=== PATIENT | male | born 1955 | race Caucasian/White ===

== ENCOUNTER → 2019-01-17 | Outpatient (REF) | payer OTHER | LOC: M LAB LCGH 13:56 | PROVIDERS: ATTEND Physician Assistant | DX: D48.5 Neoplasm of uncertain behavior of skin (principal) ==

== ENCOUNTER → 2019-08-06 | Outpatient (CLI) | payer OTHER ==
--- NOTE | 2019-08-07 15:48 | REP ---
PET/CT: History: Diagnosing abnormal findings digestive tract. Personal history of malignant neoplasm of the large intestine. Elevated CEA level. Comparison CT study of the chest, abdomen and pelvis has been retrieved from July 26, 2019 done at [facility]. TECHNIQUE: 54 minutes following the intravenous injection of a 8.87 mCi dose of F-18 FDG, three-dimensional PET scintigraphy is acquired from the skull base to the proximal thighs. Triplanar noncontrast CT scanning is acquired through the same anatomic range for attenuation correction, and image registration with scan parameters optimized to minimize radiation exposure to the patient. PET scintigraphy and CT datasets were fused and displayed on a workstation with multiplanar and projection display capability. PET/CT Findings: There is some bilateral thyroid gland uptake, right a little more avidly than left but no observable mass lesion. This may be normal variant. Head and neck soft tissues are otherwise unremarkable. There is no abnormal hypermetabolic uptake within the thorax. No pulmonary parenchymal nodule or abnormal parenchymal FDG accumulation is seen. No abnormal hypermetabolic uptake is seen within the liver. No abnormal uptake is seen in either adrenal gland. There is no evidence of retroperitoneal or upper abdominal annel hypermetabolic uptake. The patient is status post partial colectomy. There is minimal uptake at the anastomosis in the rectum with maximum SUV value 4.81 but this is similar in avidity to normal gastrointestinal mucosal uptake throughout the remainder the colon. No mass lesion is seen. Impression: No abnormal hypermetabolic uptake. No evidence to suggest metastatic disease by PET scintigraphy. Electronically Signed by Johan Aviles MD 08/07/2019 04:37 P
== END ==
LOC: M PLARAD 07:32
PROVIDERS: ATTEND Surgery
DX: R93.3 Abnormal findings on diagnostic imaging of other parts of digestive tract (principal); Z85.038 Personal history of other malignant neoplasm of large intestine; R97.0 Elevated carcinoembryonic antigen [CEA]
CPT/HCPCS: 78815; A9552

== ENCOUNTER → 2020-02-12 | Outpatient (CLI) | payer OTHER ==
[~2020-02-12] MED LIST: FINA5TAB2 PO; LISI10TA4 PO; OMEGCAP4 PO; REST0.05 OP; SILD100T PO
--- NOTE | 2020-02-28 13:14 | REP ---
PET CT HISTORY: Restaging malignant neoplasm of the large intestine. Abnormal findings on diagnostic imaging of the digestive system. COMPARISON: PET CT study from 08/06/2019. TECHNIQUE: 47 minutes following the intravenous injection of an 8.74 mCi dose of F18 fluorodeoxyglucose (FDG), 3D PET CT imaging is acquired from the skull base to the proximal thighs. PET CT FINDINGS: Head and neck soft tissues are remarkable for some increased metabolic activity in the thyroid lobes bilaterally, right more so than left. This is a little more evident than on the prior PET CT study, but not a new finding. Maximum SUV value 12.69 today versus 7.97 previously. No enlargement or mass lesion is visible. There is no abnormal hypermetabolic uptake in the thorax. No new lung nodule is appreciated. There is a new liver lesion, which is hypermetabolic and 3.2 cm in greatest diameter. Maximum SUV value in this new lesion is 6.37. This is consistent with a metastasis. A low-density lesion is seen on the accompanying CT. No other focal liver lesion is appreciated. There is no evidence of mass or adenopathy in the abdomen or pelvis. There is some artifactual activity extending back from the posterior wall of the bladder in the region of the anastomosis, but no mass lesion is seen. There is no evidence of pelvic disease. IMPRESSION: There is a new presumed metastatic focus in the left lobe of the liver 3.2 cm in diameter with maximum standard uptake value (SUV) 6.37. Incidental uptake is again seen in the thyroid similar to prior study. MTDD
== END ==
LOC: M PLARAD 14:26
PROVIDERS: ATTEND Surgery
DX: R93.3 Abnormal findings on diagnostic imaging of other parts of digestive tract (principal)
CPT/HCPCS: 78815; A9552

== ENCOUNTER → 2020-04-28 | Outpatient (CLI) | payer OTHER ==
[~2020-04-28] MED LIST changes: +ASPI81CH2 PO; +LIDOCAINE 1% MDV 20ML VIAL As Ordered ONE; +LISI-538 PO; +LOPE2CAP PO; +MIDAZOLAM INJ 2MG/2ML VIAL (J2250 PER 1MG) As Ordered ONE; +ONDA8TAB10 PO; +PROC10TA4 PO; +ceFAZolin 1GM VIAL (J0690 PER 500MG) As Ordered ONE; +diphenhydrAMINE 50MG/ML VIAL (J1200) As Ordered ONE; +fentaNYL 100 MCG/2 ML INJECTION (J3010) As Ordered ONE
--- NOTE | 2020-04-28 13:39 | IRHP ---
[facility] IR Pre-Procedure H & P General Date of Service: Apr 28, 2020 Procedure: Same Day Surgery Interval History and Physical I have seen the patient and reviewed last H & P performed within 30 days. There is no significant interval change. History of Present Illness Chief Complaint The patient is a 64-year-old male admitted with a reason for visit of Colon Ca. PRE-PROCEDURE DIAGNOSIS:colon cancer HEART: normal rate. LUNGS: normal breathing at rest. ASA Classification ASA Classification: III-Severe systemic dis. Mallampati Score: II NPO: Yes Problems with prior sedation: No Obstructive Sleep Apnea: No Plan moderate sedation Allergies Coded Allergies: No Known Allergies (Unverified , 04/01/20) Home Medications Scheduled Aspirin (Aspirin), 1 TAB PO DAILY, (Reported) Cyclosporine (Restasis), 1 DROP OP BID, (Reported) Finasteride (Finasteride), 5 MG PO DAILY, (Reported) Lisinopril (Lisinopril), 1 TAB PO DAILY, (Reported) Miscellaneous Medications Drain-3/Dha/Epa/Fish Oil (Drain-3 Fish Oil 1,000 mg Sfgl), 1 CAP PO, (Reported) Discontinued Medications Loperamide HCl (Loperamide), 2 MG PO ASDIRECTED PRN for DIARRHEA Discontinued Reason: Pt states not taking Ondansetron HCl (Ondansetron HCl), 8 MG PO Q6H PRN for NAUSEA OR VOMITING Discontinued Reason: Pt states not taking Prochlorperazine Maleate (Prochlorperazine Maleate), 10 MG PO Q6H PRN for NAUSEA OR VOMITING Discontinued Reason: Pt states not taking Sildenafil Citrate (Sildenafil Citrate), 100 MG PO PRN, (Reported) Discontinued Reason: Pt states not taking JOSEPH SOUSA MD Apr 28, 2020 13:39
--- NOTE | 2020-04-28 14:59 | POST-OPPD ---
Postoperative Procedure Note Date Of Procedure: Apr 28, 2020 Time Of Procedure: 14:57 IR ultrasound and fluoroscopy guided port placement IR Ultrasound of the neck. IR Moderate sedation. Clinical indication: Colon cancer. Physician: Dr. Preston. Procedure: The patient was advised of the benefits, risks, and alternatives of the procedure and informed consent was obtained. A time-out was performed with verification of the patient's name, MRN, site of procedure and type of procedure to be performed. The patient was positioned in the supine position on the angiographic table. The site was prepped and draped in the usual sterile fashion. Moderate sedation was performed by the physician including the presence of an independent trained RN who assisted and monitored the patient's level of consciousness and physiologic status. Following the administration of fentanyl and Versed , the physician spent 45 minutes of continuous face to face time with the patient. Ultrasound of the neck reveals a patent and compressible right internal jugular vein. A maxillofacial surgeon radiograph reveals no gross abnormality. The neck and anterior chest wall were anesthetized with lidocaine. The right internal jugular vein was accessed using a microintroducer needle under ultrasound guidance, via a lateral approach. An 018 wire was advanced into the superior vena cava, the needle was removed and a microsheath was placed. An Amplatz wire was then passed into the inferior vena cava. An incision at the internal jugular vein access site and anterior chest wall were made using a scalpel. An incision was made at the anterior chest wall. A small pocket was created using a combination of blunt and sharp dissection. A tunneling device was then used to pass the catheter from the pocket to the neck puncture site. An 8- [place] Angio VB Rags Smart power port was then positioned in the pocket. The catheter was then measured and cut. The introducer sheath was exchanged for a peel-away sheath. The catheter was passed through the peel-away sheath into the internal jugular vein and the peel-away sheath was removed. The port tip was positioned at the cavoatrial junction. The port was then accessed with a Leone needle. The port flushes and aspirates well. The puncture site in the neck was closed. The chest wall incision was then closed with 2-0 Vicryl and 4-0 Monocryl. Glue and Steri- Strips were applied. A sterile dressing was then applied. The patient tolerated the procedure well and was returned to the PRU in stable condition. Estimated blood loss: <5 ml. Complications: None. Conclusion: 1. Successful placement of an 8-[place] Angio dynamics Smart power port via the right internal jugular vein. The port is ready for immediate use. 2. Patient to follow up in IR clinic in 2 weeks. Thank you for this referral. JOSEPH PRESTON MD Apr 28, 2020 14:59
[2020-04-28 16:36] VITALS: BP 143/69
== END ==
LOC: M IRPRO 12:38
PROVIDERS: ATTEND Radiology Diagnostic Radiology
DX: C18.9 Malignant neoplasm of colon, unspecified (principal); Z79.82 Long term (current) use of aspirin; Z79.899 Other long term (current) drug therapy
CPT/HCPCS: 36561; 99152; 99153; C1769; C1788; C1894; J0690; J1200; J1642; J1644; J2250; J3010

== ENCOUNTER → 2020-11-24 | Outpatient (CLI) | payer OTHER ==
[~2020-11-24] MED LIST changes: +COVI30VI IM; +GASTROGRAFIN SOLUTION 30ML (Q9963) As Ordered ONE; +ISOVUE-370 76% 100ML VIAL As Ordered ONE; -LIDOCAINE 1% MDV 20ML VIAL As Ordered ONE; -LISI-538 PO; +LISI10TA22 PO; -LISI10TA4 PO; +LISI20TA33 PO; -MIDAZOLAM INJ 2MG/2ML VIAL (J2250 PER 1MG) As Ordered ONE; -ceFAZolin 1GM VIAL (J0690 PER 500MG) As Ordered ONE; -diphenhydrAMINE 50MG/ML VIAL (J1200) As Ordered ONE; -fentaNYL 100 MCG/2 ML INJECTION (J3010) As Ordered ONE
--- NOTE | 2020-11-24 15:14 | REP ---
INDICATION: MET COLON CA. COMPARISON: 07/26/2019 the only prior which is from an outside institution. TECHNIQUE: Standard helical technique after the intravenous administration of 100 cc Isovue 370 and oral bowel preparatory contrast administration. FINDINGS: Circumferential high density clips are seen surrounding an area of low-density previously seen to be abnormal and prior PET-CT of 02/12/2020. I have not been given a procedural or surgical history. No enhancing hepatic abnormalities are present. The liver, gallbladder, spleen, pancreas, adrenal glands, and kidneys are within normal limits. The Bosniak class 1 right renal cyst per seen previously is no longer present. Again, I have not been given surgical or procedural history. It may have auto decompressed. There are 2 unchanged left renal parapelvic cysts. There is no change in the abdominal aorta or para-aortic regions. No adenopathy has developed. There is no evidence of free fluid or free air. There is an unchanged low-density mass in the anterior mesenteric fat at the level of a surgical cicatrix there is no significant change in appearance of the bowel loops or the mesenteries. Bone window technique throughout the examination shows no change in the appearance of the osseous structures to IMPRESSION: 1. Likely postoperative or postprocedural findings in the liver as described above. Sees be correlated clinically with appropriate follow-up. 2. Unchanged anterior abdominal mass. 3. Other findings as described above. <Electronically signed by David Andersen > 11/24/20 [id number]
--- NOTE | 2020-11-24 15:19 | REP ---
INDICATION: MET COLON CA COMPARISON: 07/26/2019 from an outside institution TECHNIQUE: Standard helical technique after the intravenous administration of 100 cc Isovue 370. FINDINGS: Mediastinum and pulmonary jayda are unchanged. There is no evidence of a mass or adenopathy. There are no pleural or pericardial effusions. Bone window technique through the examination shows the osseous structures to be stable and intact. The tip of the MediPort device is seen in the superior vena cava. Evaluation of the lung mandujano shows minimal stable biapical pleuroparenchymal scarring. No new abnormal nodules, masses, or opacities have developed. IMPRESSION: There is no evidence of acute disease. Findings as described above. <Electronically signed by David Andersen > 11/24/20 [id number]
== END ==
LOC: M RAD 11:19
PROVIDERS: ATTEND Internal Medicine Medical Oncology
DX: C18.9 Malignant neoplasm of colon, unspecified (principal)
CPT/HCPCS: 71260; 74177; J1642; Q9963; Q9967

== ENCOUNTER → 2021-04-06 | Outpatient (CLI) | payer MEDICARE, OTHER ==
[~2021-04-06] MED LIST changes: -GASTROGRAFIN SOLUTION 30ML (Q9963) As Ordered ONE; -ISOVUE-370 76% 100ML VIAL As Ordered ONE
== END ==
LOC: M LABSMTC 10:44
PROVIDERS: ATTEND Anesthesiology
DX: Z01.812 Encounter for preprocedural laboratory examination (principal); Z20.822 Contact with and (suspected) exposure to COVID-19

== ENCOUNTER 2021-04-10 08:17 | Day surgery (SDC) | payer MEDICARE, OTHER ==
[~2021-04-10] VITALS: Ht 177.8 cm; Wt 104.3 kg
[~2021-04-10 08:17] MED LIST changes: +NS 1,000 ML IV ONE
--- OUTSIDE RECORDS SUMMARY | 2021-04-10 08:25 | CCD ---
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 Active confirmed 28800448029599 Problem Acral nevus D22.9 Active confirmed 68530434 4 Problem History of dysplastic nevus Z86.018 Active conf irmed 6249538010959 Problem Seborrheic keratoses L82.1 Active confirmed 801914588 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 58156 01 Problem Bug bite, initial encounter W57.XXXA Active confirm ed 043058189 Problem Screening exam for skin cancer Z12.83 Active confir med 313788498 Problem Dermatofibroma D23.9 Active confirmed 18907 6000 ALLERGIES No Known Allergies ENCOUNTERS from 1955 to 2021-03-23 Encounter Location Date Provider Diagnosis [facility] [address] [place] [address] [place] [address] Feb, Vinita Bear Seborrheic keratoses L82.1 ; Melanocytic nevus of skin D22.9 ; Screening exam for skin cancer Z12.83 ; History of dysplastic nevus Z86.018 ; 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 ; Acral nevus D22.9 ; Bug bite, initial encounter W57.XXXA ; Dermatofibroma D23.9 and 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 IMMUNIZATIONS No Information SOCIAL HISTORY Tobacco Use: Social History Observation Description Date Details (start date - stop date) Former Smoker Sex Assigned At : Social History Observation Description Sex Assigned At Unknown Tobacco Use: Question Answer Notes Are you a: former smoker REASON FOR REFERRAL No Information VITAL SIGNS Weight 234.2 lbs Feb, Weight-kg 106.23 kg Feb, Height 5'10" in Feb, BMI 33.60 kg/m2 Feb, Blood pressure systolic 144 mm Hg Feb, Blood pressure diastolic 88 mm Hg Feb, MEDICATIONS Medication SIG (Take, Route, Frequency, Duration) Notes Start Da te End Date Status Prochlorperazine Maleate Active Chantix Continuing Month Ritchie Active Chantix Active Restasis Active Ondansetron HCl Active Mupirocin 2 % as directed Externally to left calf twice daily for 30 days Feb, Active Finasteride Active Lisinopril Active PROCEDURES No Information RESULTS No Results REASON FOR VISIT 1 year fbse MEDICAL (GENERAL) HISTORY Type Description Date Medical History HBP Medical History Enlarged prostate Medical History Colon cancer Medical History Liver cancer- finished Chemo tx in 2020 Surgical History Liver surgery 07/2020 Goals Section No Information Health Concerns No Information MEDICAL EQUIPMENT No Information MENTAL STATUS No Information FUNCTIONAL STATUS No Information ASSESSMENTS Encounter Date Diagnosis Assessment Notes Treatment Notes Treatm ent Clinical Notes Feb, Seborrheic keratoses (ICD-10 - L82.1) Benign Lesion Counseling. The patient was extensively counseled regarding the benign nature of the lesion but that skin cancer may arise in this area just as it would anywhere on their skin. For that reason, return to clinic was recommended for any acute changes, itching, burning, or bleeding. The patient was educated that benign lesions are not a covered insurance benefit and treatment would be elective and cosmetic. They expressed understanding. Feb, Melanocytic nevus of skin (ICD-10 - D22.9) Reminded to avoid the sun and tanning, use sun screens regularly when spending time [id number], and perform self-examinations monthly to watch for any change in the appearance of your moles. If you notice any changes in color, appearance, symptoms of moles, you should contact the office for an appointment to have change evaluated as soon as possible. Feb, Screening exam for skin cancer (ICD-10 - Z12.83) Patient counseled on signs and symptoms of skin cancer including ABCDE's of Melanoma. Patient counseled to wear sunscreen or use sun protective clothing when outdoors. Avoid peak hours of sun between 10-2. Patient instructed to call with any new or changing lesions. Feb, History of dysplastic nevus (ICD-10 - Z86.018) No evidence of recurrence. Feb, History of squamous cell car cinoma in situ (SCCIS) (ICD-10 - Z86.007) No evidence of recurrence. Feb, Acral nevus (ICD-10 - D22.9) Reminded to avoid the sun and tanning, use sun screens regularly when spending time [id number], and perform self-examinations monthly to watch for any change in the appearance of your moles. If you notice any changes in color, appearance, symptoms of moles, you should contact the office for an appointment to have change evaluated as soon as possible. Feb, Bug bite, initial encounter (ICD-10 - W57.XXXA) Feb, Dermatofibroma (ICD-10 - D23.9) Benign, reassurance Feb, Melendez angioma (ICD-10 - D18.01) Benign, reassurance PLAN OF TREATMENT Medication Medication Name Sig Start Date Stop Date Mupirocin 2 % as directed Externally to left calf twic e daily for 30 days Feb, Treatment Notes Assessment Notes Clinical Notes Seborrheic keratoses Benign Lesion Couns eli. The patient was extensively counseled regarding the benign nature of the lesion but that skin cancer may arise in this area just as it would anywhere on their skin. For that reason, return to clinic was recommended for any acute changes, itching, burning, or bleeding. The patient was educated that benign lesions are not a covered insurance benefit and treatment would be elective and cosmetic. They expressed understanding. Melanocytic nevus of skin Reminded to av oid the sun and tanning, use sun screens regularly when spending time [id number], and perform self-examinations monthly to watch for any change in the appearance of your moles. If you notice any changes in color, appearance, symptoms of moles, you should contact the office for an appointment to have change evaluated as soon as possible. Screening exam for skin cancer Patient c ounseled on signs and symptoms of skin cancer including ABCDE's of Melanoma. Patient counseled to wear sunscreen or use sun protective clothing when outdoors. Avoid peak hours of sun between 10-2. Patient instructed to call with any new or changing lesions. History of dysplastic nevus No evidence of recurrence. History of squamous cell carcinoma in situ (SCCIS) No evidence of recurrence. Acral nevus Reminded to avoid th e sun and tanning, use sun screens regularly when spending time [id number], and perform self-examinations monthly to watch for any change in the appearance of your moles. If you notice any changes in color, appearance, symptoms of moles, you should contact the office for an appointment to have change evaluated as soon as possible. Dermatofibroma Benign, reassurance Melendez angioma Benign, reassurance Next Appt Details 1 Year Reason:FBSE Follow Up:1 YearFBSE Insurance Providers Payer Name Payer Address Payer Phone Insured Name Patient Relati onship to Insured Coverage Start Date Coverage End Date MEDICARE Part A and B [address] [facility] [phone] HERMES CAMERON self R [facility] [address] [address] [facility] [phone] NITA CAMERON [id number]
--- OUTSIDE RECORDS SUMMARY | 2021-04-10 08:26 | CCD ---
Author Author [facility] Organization [facility] Address Unknown Phone Unavailable Care Team Providers Care Phytopathology Teacher Name Role Phone DAGMAR KRUGER MD Unavailable Unavailable REINDL, DAGMAR TORO Unavailable Unavailable REINDL, DAGMAR TORO Unavailable Unavailable REINDL, DAGMAR TORO Unavailable Unavailable REINDL, DAGMAR TORO Unavailable Unavailable REINDL, DAGMAR TORO Unavailable Unavailable REINDL, DAGMAR TORO Unavailable Unavailable SASKIA, DAGMAR TORO Unavailable Unavailable SASKIA, DAGMAR TORO Unavailable Unavailable REINCATE, DAGMAR TORO Unavailable Unavailable REINCATE, DAGMAR TORO Unavailable Unavailable REINCATE, DAGMAR TORO Unavailable Unavailable REINCATE, DAGMAR TORO Unavailable Unavailable REINCATE, DAGMAR TORO Unavailable Unavailable REINCATE, DAGMAR TORO Unavailable Unavailable REINDL, DAGMAR TORO Unavailable Unavailable REINDL, DAGMAR TORO Unavailable Unavailable REINDLDAGMAR MD Unavailable Unavailable REINDLDAGMAR MD Unavailable Unavailable REINDL, DAGMAR TORO Unavailable Unavailable REINCATE, DAGMAR TORO Unavailable Unavailable REINCATE, DAGMAR TORO Unavailable Unavailable REINDL, DAGMAR TORO Unavailable Unavailable REINCATE, DAGMAR TORO Unavailable Unavailable SASKIA, DAGMAR TORO Unavailable Unavailable REINCATE, DAGMAR TORO Unavailable Unavailable REINCATE, DAGMAR TORO Unavailable Unavailable REINCATE, DAGMAR TORO Unavailable Unavailable SASKIA, DAGMAR TORO Unavailable Unavailable SASKIA, DAGMAR TORO Unavailable Unavailable SASKIA, DAGMAR TORO Unavailable Unavailable SASKIA, DAGMAR TORO Unavailable Unavailable SASKIA, DAGMAR TORO Unavailable Unavailable REINCATE, DAGMAR TORO Unavailable Unavailable REINDAGMAR ESPOSITO MD Unavailable Unavailable REINDL, DAGMAR TORO Unavailable Unavailable REINDL, DAGMAR TORO Unavailable Unavailable REINDL, DAGMAR TORO Unavailable Unavailable REINDL, DAGMAR TORO Unavailable Unavailable REINDL, DAGMAR TORO Unavailable Unavailable REINDL, DAGMAR TORO Unavailable Unavailable REINDL, DAGMAR TORO Unavailable Unavailable RICHAR, Robby PINA MD Unavailable Unavailable RICHAR, Robby PINA MD Unavailable Unavailable RICHAR, Robby PINA MD Unavailable Unavailable RICHAR, Robby PINA MD Unavailable Unavailable RICHAR, Robby PINA MD Unavailable Unavailable RICHAR, Robby PINA MD Unavailable Unavailable RICHAR, Robby PINA MD Unavailable Unavailable RICHAR, Robby PINA MD Unavailable Unavailable RICHAR, Robby PINA MD Unavailable Unavailable RICHAR, Robby PINA MD Unavailable Unavailable RICHAR, Robby PINA MD Unavailable Unavailable RICHAR, Robby PINA MD Unavailable Unavailable RICHAR, Robby PINA MD Unavailable Unavailable RICHAR, Robby PINA MD Unavailable Unavailable RICHAR, Robby PINA MD Unavailable Unavailable RICHAR, Robby PINA MD Unavailable Unavailable RICHAR, Robby PINA MD Unavailable Unavailable RICHAR, Robby PINA MD Unavailable Unavailable RICHAR, Robby PINA MD Unavailable Unavailable RICHAR, Robby PINA MD Unavailable Unavailable KOSAR, JAMIE Unavailable Unavailable Doctor Provided, Family PHYS No Family Unavailable U navailable Perla, A Lyric GLOBAL SOURCING MANAGER Unavailable Unavailable Holly [place], A Lyric GLOBAL SOURCING MANAGER Unavailable Unavailable Perla, A Lyric GLOBAL SOURCING MANAGER Unavailable Unavailable [place], A Lyric GLOBAL SOURCING MANAGER Unavailable Unavailable [place], A Lyric GLOBAL SOURCING MANAGER Unavailable Unavailable [place], A Lyric GLOBAL SOURCING MANAGER Unavailable Unavailable Perla, A Lyric GLOBAL SOURCING MANAGER Unavailable Unavailable Perla, A Lyric GLOBAL SOURCING MANAGER Unavailable Unavailable Perla, A Lyric GLOBAL SOURCING MANAGER Unavailable Unavailable [place], A Lyric GLOBAL SOURCING MANAGER Unavailable Unavailable Perla, A Lyric GLOBAL SOURCING MANAGER Unavailable Unavailable [place], A Lyric GLOBAL SOURCING MANAGER Unavailable Unavailable Perla, A Lyric GLOBAL SOURCING MANAGER Unavailable Unavailable [place], A Lyric GLOBAL SOURCING MANAGER Unavailable Unavailable [place], A Lyric GLOBAL SOURCING MANAGER Unavailable Unavailable Perla, A Lyric GLOBAL SOURCING MANAGER Unavailable Unavailable Perla, A Lyric GLOBAL SOURCING MANAGER Unavailable Unavailable Perla, A Lyric GLOBAL SOURCING MANAGER Unavailable Unavailable Perla, A Lyric GLOBAL SOURCING MANAGER Unavailable Unavailable Perla, A Lyric GLOBAL SOURCING MANAGER Unavailable Unavailable [place], A Lyric GLOBAL SOURCING MANAGER Unavailable Unavailable [place], A Lyric GLOBAL SOURCING MANAGER Unavailable Unavailable Perla, A Lyric GLOBAL SOURCING MANAGER Unavailable Unavailable [place], A Lyric GLOBAL SOURCING MANAGER Unavailable Unavailable [place], A Lyric GLOBAL SOURCING MANAGER Unavailable Unavailable [place], A Lyric GLOBAL SOURCING MANAGER Unavailable Unavailable Perla, A Lyric GLOBAL SOURCING MANAGER Unavailable Unavailable Perla, A Lyric GLOBAL SOURCING MANAGER Unavailable Unavailable Perla, A Lyric GLOBAL SOURCING MANAGER Unavailable Unavailable Holly [place], A Lyric GLOBAL SOURCING MANAGER Unavailable Unavailable [place], A Lyric GLOBAL SOURCING MANAGER Unavailable Unavailable Perla, A Lyric GLOBAL SOURCING MANAGER Unavailable Unavailable [place], A Lyric GLOBAL SOURCING MANAGER Unavailable Unavailable Perla, A Lyric GLOBAL SOURCING MANAGER Unavailable Unavailable [place], A Lyric GLOBAL SOURCING MANAGER Unavailable Unavailable [place], A Lyric GLOBAL SOURCING MANAGER Unavailable Unavailable Perla, A Lyric GLOBAL SOURCING MANAGER Unavailable Unavailable [place], A Lyric GLOBAL SOURCING MANAGER Unavailable Unavailable [place], A Lyric GLOBAL SOURCING MANAGER Unavailable Unavailable [place], A Lyric GLOBAL SOURCING MANAGER Unavailable Unavailable Perla, A Lyric GLOBAL SOURCING MANAGER Unavailable Unavailable Ugo Zamora MD Unavailable Unavailable Ugo Zamora MD Unavailable Unavailable Ugo Zamora MD Unavailable Unavailable Ugo Zamora MD Unavailable Unavailable Ugo Zamora MD Unavailable Unavailable Ugo Zamora MD Unavailable Unavailable Ugo Zamora MD Unavailable Unavailable Ugo Zamora MD Unavailable Unavailable Uog Zamora MD Unavailable Unavailable Ugo Zamora MD Unavailable Unavailable Ugo Zamora MD Unavailable Unavailable Ugo Zamora MD Unavailable Unavailable Ugo Zamora MD Unavailable Unavailable Ugo Zamora MD Unavailable Unavailable Ugo Zamora MD Unavailable Unavailable Ugo Zamora MD Unavailable Unavailable Kristyn Teague MD Unavailable Unavailable Kristyn Teague MD Unavailable Unavailable Kristyn Teague MD Unavailable Unavailable Kristyn Teague MD Unavailable Unavailable Kristyn Teague MD Unavailable Unavailable Kristyn Teague MD Unavailable Unavailable Kristyn Teague MD Unavailable Unavailable Kristyn Teague MD Unavailable Unavailable Kristyn Teague MD Unavailable Unavailable Kristyn Teague MD Unavailable Unavailable Kristyn Teague MD Unavailable Unavailable Kristyn Teague MD Unavailable Unavailable Kristyn Teague MD Unavailable Unavailable Kristyn Teague MD Unavailable Unavailable Kristyn Teague MD Unavailable Unavailable Kristyn Teague MD Unavailable Unavailable Kristyn Teague MD Unavailable Unavailable Zahida, A Dirk MD Unavailable Unavailable Zahida, A Dirk MD Unavailable Unavailable Zahida, A Dirk MD Unavailable Unavailable Zahida, A Dirk MD Unavailable Unavailable Zahida, A Dirk MD Unavailable Unavailable Zahida, A Dirk MD Unavailable Unavailable Zahida, A Dirk MD Unavailable Unavailable Zahida, A Dirk MD Unavailable Unavailable Zahida, A Dirk MD Unavailable Unavailable Zahida, A Dirk MD Unavailable Unavailable Zahida, A Dirk MD Unavailable Unavailable Zahida, A Dirk MD Unavailable Unavailable Zahida, A Dirk MD Unavailable Unavailable Zahida, A Dirk MD Unavailable Unavailable Zahida, A Dirk MD Unavailable Unavailable Zahida, A Dirk MD Unavailable Unavailable Zahida, A Dirk MD Unavailable Unavailable Zahida, A Dirk MD Unavailable Unavailable Zahida, A Dirk MD Unavailable Unavailable Zahida, A Dirk MD Unavailable Unavailable Zahida, A Dirk MD Unavailable Unavailable Zahida, A Dirk MD Unavailable Unavailable Zahida, A Dirk MD Unavailable Unavailable Zahida, A Dirk MD Unavailable Unavailable Zahida, A Dirk MD Unavailable Unavailable Zahida, A Dirk MD Unavailable Unavailable Zahida, A Dirk MD Unavailable Unavailable Zahida, A Dirk MD Unavailable Unavailable Zahida, A Dirk MD Unavailable Unavailable Zahida, A Dirk MD Unavailable Unavailable Zahida, A Dirk MD Unavailable Unavailable Zahida, A Dirk MD Unavailable Unavailable Zahida, A Dirk MD Unavailable Unavailable Zahida, A Dirk MD Unavailable Unavailable Zahida, A Dirk MD Unavailable Unavailable Zahida, A Dirk MD Unavailable Unavailable Zahida, A Dirk MD Unavailable Unavailable Zahida, A Dirk MD Unavailable Unavailable Zahida, A Dirk MD Unavailable Unavailable Zahida, A Dirk MD Unavailable Unavailable Zahida, A Dirk MD Unavailable Unavailable Zahida, A Dirk MD Unavailable Unavailable Zahida, A Dirk MD Unavailable Unavailable Zahida, A Dirk MD Unavailable Unavailable Zahida, A Dirk MD Unavailable Unavailable Zahida, A Dirk MD Unavailable Unavailable Zahida, A Dirk MD Unavailable Unavailable Zahida, A Dirk MD Unavailable Unavailable Zahida, A Dirk MD Unavailable Unavailable Zahida, A Dirk MD Unavailable Unavailable Zahida, A Dirk MD Unavailable Unavailable Zahida, A Dirk MD Unavailable Unavailable Zahida, A Dirk MD Unavailable Unavailable Zahida, A Dirk MD Unavailable Unavailable Zahida, A Dirk MD Unavailable Unavailable Zahida, A Dirk MD Unavailable Unavailable Zahida, A Dirk MD Unavailable Unavailable Zahida, Kristyn Cavazos MD Unavailable Unavailable Zahida, A Dirk MD Unavailable Unavailable Zahida, A Dirk MD Unavailable Unavailable Zahida, A Dirk MD Unavailable Unavailable Zahida, A Dirk MD Unavailable Unavailable Zahida, A Dirk MD Unavailable Unavailable Zahida, A Dirk MD Unavailable Unavailable Zahida, A Dirk MD Unavailable Unavailable Zahida, A Dirk MD Unavailable Unavailable Zahida, A Dirk MD Unavailable Unavailable Zahida, A Dirk MD Unavailable Unavailable Mychal, Mashaal MD Unavailable Unavailable Mychal, Mashaal MD Unavailable Unavailable Mychal, Mashaal MD Unavailable Unavailable Mychal, Mashaal MD Unavailable Unavailable Mychal, Mashaal MD Unavailable Unavailable Mychal, Mashaal MD Unavailable Unavailable Mychal, Mashaal MD Unavailable Unavailable Mychal, Mashaal MD Unavailable Unavailable Mychal, Mashaal MD Unavailable Unavailable Mychal, Mashaal MD Unavailable Unavailable Mychal, Mashaal MD Unavailable Unavailable Mychal, Mashaal MD Unavailable Unavailable Mychal, Mashaal MD Unavailable Unavailable Mychal, Mashaal MD Unavailable Unavailable Mychal, Mashaal MD Unavailable Unavailable Mychal, Mashaal MD Unavailable Unavailable Mychal, Mashaal MD Unavailable Unavailable Mychal, Mashaal MD Unavailable Unavailable Mychal, Mashaal MD Unavailable Unavailable Mychal, Mashaal MD Unavailable Unavailable Mychal, Mashaal MD Unavailable Unavailable Mychal, Mashaal MD Unavailable Unavailable Mychal, Mashaal MD Unavailable Unavailable Mychal, Mashaal MD Unavailable Unavailable Mychal, Mashaal MD Unavailable Unavailable Mychal, Mashaal MD Unavailable Unavailable Mychal, Mashaal MD Unavailable Unavailable Mychal, Mashaal MD Unavailable Unavailable Mychal, Mashaal MD Unavailable Unavailable Mychal, Mashaal MD Unavailable Unavailable Mychal, Mashaal MD Unavailable Unavailable Mychal, Mashaal MD Unavailable Unavailable Mychal, Mashaal MD Unavailable Unavailable Mychal, Mashaal MD Unavailable Unavailable Mychal, Mashaal MD Unavailable Unavailable Mychal, Mashaal MD Unavailable Unavailable Mychal, Mashaal MD Unavailable Unavailable Mychal, Mashaal MD Unavailable Unavailable Mychal, Mashaal MD Unavailable Unavailable Mychal, Mashaal MD Unavailable Unavailable Mychal, Mashaal MD Unavailable Unavailable Mychal, Mashaal MD Unavailable Unavailable Mychal, Mashaal MD Unavailable Unavailable Mychal, Mashaal MD Unavailable Unavailable Mychal, Mashaal MD Unavailable Unavailable Mychal, Mashaal MD Unavailable Unavailable Mychal, Mashaal MD Unavailable Unavailable Mychal, Mashaal MD Unavailable Unavailable Mychal, Mashaal MD Unavailable Unavailable Mychal, Mashaal MD Unavailable Unavailable Mychal, Mashaal MD Unavailable Unavailable Mychal, Mashaal MD Unavailable Unavailable Mychal, Mashaal MD Unavailable Unavailable Mychal, Mashaal MD Unavailable Unavailable Mychal, Mashaal MD Unavailable Unavailable Mychal, Mashaal MD Unavailable Unavailable Mychal, Mashaal MD Unavailable Unavailable Mychal, Mashaal MD Unavailable Unavailable Mychal, Mashaal MD Unavailable Unavailable Mychal, Mashaal MD Unavailable Unavailable Mychal, Mashaal MD Unavailable Unavailable Re-disclosure Warning The records that you are about to access may contain information from federally-assisted alcohol or drug abuse programs. If such information is present, then the following federally mandated warning applies: This information has been disclosed to you from records protected by federal confidentiality rules (42 CFR part 2). The federal rules prohibit you from making any further disclosure of this information unless further disclosure is expressly permitted by the written consent of the person to whom it pertains or as otherwise permitted by 42 CFR part 2. A general authorization for the release of medical or other information is NOT sufficient for this purpose. The Federal rules restrict any use of the information to criminally investigate or prosecute any alcohol or drug abuse patient.The records that you are about to access may contain highly sensitive health information, the redisclosure of which is protected by Article 27-F of the [facility] Public Health law. If you continue you may have access to information: Regarding HIV / AIDS; Provided by facilities licensed or operated by the [facility] Office of Mental Health; or Provided by the [facility] Office for People With Developmental Disabilities. If such information is present, then the following [facility] mandated warning applies: This information has been disclosed to you from confidential records which are protected by state law. State law prohibits you from making any further disclosure of this information without the specific written consent of the person to whom it pertains, or as otherwise permitted by law. Any unauthorized further disclosure in violation of state law may result in a fine or snf sentence or both. A general authorization for the release of medical or other information is NOT sufficient authorization for further disc losure. Allergies and Adverse Reactions Type Description Substance Reaction Status Data Source(s ) Propensity to adverse reactions NO KNOWN ALLERGIES NO KNOWN ALLERGIES [facility] Family History Family Member Name Family Member Gender Family Member Status Date o f Status Description Data Source(s) Unknown Condition [facility] Encounters Encounter Providers Location Date Indications Data Source(s ) [place] [id number] [facility] [address] 03/19/2021 12:00:00 AM EDT eCW1 ([facility]) Outpatient Attender: DAGMAR Rain/Lupillo/Merritt/Mariely esposito 12/25/2020 01:20:00 PM EDT MED[facility] ([facility]) Outpatient Attender: JAMIE Lui: Maria Luisa Family Docto r Provided 07/24/2020 08:21:00 AM EST C18.7 [facility] C18.7 Outpatient Admitter: Elenita Horta MDReferrer: Elenita Horta MD 05/27/2020 12:00:00 AM EST 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 Malignant neoplasm of colon, unspecified Outpatient Referrer: Dirk AGUILAR-MOB.PAT 2019 11:59:13 AM EST - 04/02/2020 11:59:19 AM EST [facility] Outpatient Attender: SILVANA JACKSON MDReferrer: Dirk AGUILAR-MOB.PAT 04/02/2020 12:00:00 AM EST - 04/02/2020 11:03:49 AM EST [facility] Outpatient Attender: SILVANA JACKSON MDAttender: Ugo Zamora MDAdmitter: SILVANA JACKSON MDReferrer: Dirk Teague MD [id number] 01:44:05 PM EDT - 04/07/2020 02:25:00 PM EST [facility] Patient discharged. Immunizations Vaccine Date Status Description Data Source(s) COVID-19 VACCINE Pfizer 03/18/2021 12:00:00 AM EDT completed [facility] Vaccine Series Complete: YESThis Data wa s Submitted to [facility] [employer]. COVID-19 VACC, MRNA(metraTec)/PF 03/18/2021 12:00:00 AM EDT completed [facility] COVID-19 VACCINE Pfizer 08/20/2020 12:00:00 AM EDT completed [facility] Vaccine Series Complete: YESThis Data wa s Submitted to [facility] [employer]. COVID-19 VACCINE Pfizer 07/30/2020 12:00:00 AM EST completed [facility] Vaccine Series Complete: NOThis Data was Submitted to [facility] [employer]. Medications Medication Brand Name Start Date Product Form Dose Route Admi nistrative Instructions Pharmacy Instructions Status Indications Reaction Description Data Source(s) 1.479-0.188- 0.225 gram 03/30/2021 12:00:00 AM EDT tablet 24 DIRECTED -- SEE OFFICE COLON PREP INSTRUCTIONS DIRECTED -- SEE OFFICE COLON PREP INSTRUCTIONS SOLD: 03/30/2021 [facility] 20 mg 03/27/2021 12:00:00 AM EDT tablet 90 TAKE ONE TABLET BY MOUTH EVERY DAY TAKE ONE TABLET BY MOUTH EVERY DAY SOLD: 03/30/2021 [facility] Mupirocin 0.02 MG/MG Topical Ointment Mupirocin 2 % Mupiroci n 2 % 03/19/2021 12:00:00 AM EDT active Mupiroci n 2 % eCW1 ([facility]) 2 % 03/19/2021 12:00:00 AM EDT ointment 22 APPLY TOPICALLY TO LEFT CALF TWICE DAILY APPLY TOPICALLY TO LEFT CALF TWICE DAILY SOLD: 03/23/2021 [facility] Sutab Sutab 12/25/2020 12:00:00 AM EDT active [facility] ([facility], ) Magnesium Hydroxide 80 MG/ML Oral Suspension Milk Of Cleo a 12/25/2020 12:00:00 AM EDT ORAL active M [facility]ENT ([facility], ) 200 mg 08/08/2020 12:00:00 AM EST capsule 15 TAKE ONE CAPSULE BY MOUTH TWICE A DAY NEEDED FOR PAIN TAKE ONE CAPSULE BY MOUTH TWICE A DAY NEEDED FOR PAIN SOLD: 08/09/2020 [facility] 50 mg 08/08/2020 12:00:00 AM EST tablet 8 TAKE ONE TABLET BY MOUTH EVERY 6 HOURS NEEDED FOR PAIN , SEVERE ( 7-10 ON PAIN ASSESSMENT SCALE ) MAXIMUM DAILY DOSE = 4 TABLETS TAKE ONE TABLET BY MOUTH EVERY 6 HOURS A S NEEDED FOR PAIN , SEVERE ( 7-10 ON PAIN ASSESSMENT SCALE ) MAXIMUM DAILY DOSE = 4 TABLETS SOLD: 08/09/2020 [facility] 0.05 % 07/13/2020 12:00:00 AM EST dropperette 180 INSTILL 1 DROP IN EACH EYE TWO TIMES A DAY DIRECTED INSTILL 1 DROP IN EACH EYE TWO TIMES A D AY DIRECTED SOLD: 07/17/2020 [facility] 1 mg 06/13/2020 12:00:00 AM EST tablet 60 TAKE ONE TABLET BY MOUTH TWICE A DAY TAKE ONE TABLET BY MOUTH TWICE A DAY SOLD: 06/23/2020 [employer] Finasteride 5 MG Oral Tablet FINASTERIDE 06/13/2020 12:00:00 AM EST ta blet 90 TAKE ONE TABLET BY MOUTH EVERY DAY TAKE ONE TABLET BY MOUTH EVERY DAY SOLD: 03/30/2021 [facility] Finasteride 5 MG Oral Tablet FINASTERIDE 06/13/2020 12:00:00 AM EST ta blet 90 TAKE ONE TABLET BY MOUTH EVERY DAY TAKE ONE TABLET BY MOUTH EVERY DAY SOLD: 06/23/2020 [facility] Finasteride 5 MG Oral Tablet FINASTERIDE 06/13/2020 12:00:00 AM EST ta blet 90 TAKE ONE TABLET BY MOUTH EVERY DAY TAKE ONE TABLET BY MOUTH EVERY DAY SOLD: 12/23/2020 [facility] 8 mg 04/17/2020 12:00:00 AM EST tablet 9 TAKE ONE TABLET BY MOUTH EVERY 6 HOURS NEEDED FOR NAUSEA OR VOMITING TAKE ONE TABLET BY MOUTH EVERY 6 HOURS A S NEEDED FOR NAUSEA OR VOMITING SOLD: 04/29/2020 [facility] 10 mg 04/17/2020 12:00:00 AM EST tablet 30 TAKE ONE TABLET BY MOUTH EVERY 6 HOURS NEEDED FOR NAUSEA OR VOMITING TAKE ONE TABLET BY MOUTH EVERY 6 HOURS A S NEEDED FOR NAUSEA OR VOMITING SOLD: 04/29/2020 [facility] normal saline flush 0.9 % injection 3 mL 02508-791-50 04/07/2020 02:00:00 PM EST 3 mL Intravenous active 3 mL , Intravenous, Every 8 hours (scheduled), First dose on Tue04/07/20 at 1400, Admission - Sign & Hold
flush per protocol, D/C Main IV fluid if appropriate
[facility] Medication administered onsite dextrose 5 % and sodium chloride 0.45 % infusion 6421-5407-0 0 04/07/2020 01:00:00 PM EST 30 mL/h Intravenous active at 30 mL/hr, 30 mL/hr, Intravenous, Continuous, Starting Tue04/07/20 at 1300, Post-op [facility] Medication administered onsite 2 ML Midazolam 1 MG/ML Injection midazolam (VERSED) in jection midazolam (VERSED) injection 04/07/2020 12:09:32 PM EST Intravenous com pleted Intravenous, Code/trauma/sedation medication, Starting Tue04/07/20 at 1209 [facility] Medication administered onsite fentaNYL Citrate (PF) (SUBLIMAZE) injection 9563-6677-30 04/07/2020 12:07:20 PM EST Intravenous completed In travenous, Code/trauma/sedation medication, Starting Tue04/07/20 at 1207 [facility] Medication administered onsite dextrose 5 % and sodium chloride 0.45 % infusion [id number] 0 04/07/2020 11:00:00 AM EST 30 mL/h Intravenous active at 30 mL/hr, 30 mL/hr, Intravenous, Continuous, Starting Tue04/07/20 at 1100, Admission - Sign & Hold [facility] Medication administered onsite Acetaminophen 325 MG Oral Tablet acetaminophen (TYLENO L) 325 MG tablet 650 mg acetaminophen (TYLENOL) 325 MG tablet 650 mg 04/07/2020 10:43:51 AM EST 650 mg Oral active 650 mg, Or al, Every 4 hours PRN, mild pain (1-3), Starting 04/07/20 at 1043, Admission - Sign & Hold
"Maximum dose of acetaminophen is 4,000 mg from all sources in 24 hours."
[facility] Medication administered onsite 20 mg 03/17/2020 12:00:00 AM EDT tablet 90 TAKE ONE TABLET BY MOUTH EVERY DAY TAKE ONE TABLET BY MOUTH EVERY DAY SOLD: 03/18/2020 [facility] 20 mg 03/17/2020 12:00:00 AM EDT tablet 90 TAKE ONE TABLET BY MOUTH EVERY DAY TAKE ONE TABLET BY MOUTH EVERY DAY SOLD: 06/23/2020 [facility] 20 mg 03/17/2020 12:00:00 AM EDT tablet 90 TAKE ONE TABLET BY MOUTH EVERY DAY TAKE ONE TABLET BY MOUTH EVERY DAY SOLD: 12/23/2020 [facility] Finasteride 5 MG Oral Tablet FINASTERIDE 06/25/2019 12:00:00 AM EST ta blet 90 TAKE ONE TABLET BY MOUTH EVERY DAY TAKE ONE TABLET BY MOUTH EVERY DAY SOLD: 03/18/2020 [facility] Finasteride 5 MG Oral Tablet Finasteride 5 MG Oral Tablet 12:00:00 AM EST 1 active finasteride 5 MG Oral Tablet [facility]DAE ([facility]) 1 mg 06/04/2019 12:00:00 AM EST tablet 56 TAKE ONE TABLET BY MOUTH TWICE A DAY TAKE ONE TABLET BY MOUTH TWICE A DAY SOLD: 03/18/2020 [facility] Insurance Providers Payer name Policy type / Coverage type Policy ID Covered democrat ID Covered democrat's relationship to [place] Policy [place] Plan Information R [id number] xxxxxxxxx [id number] UMR [id number] Spo [id number] UMR U [id number] Spouse [id number] INSURANCE COVID-19 [id number] INSURANCE COVID-19 COVID Mitra C OVID POMCO Other [id number] Family Dependent Nita [place] 0 UMR [facility] [id number] [id number] UMR O [id number] S [id number] UMR PI PI MEDICARE [id number] SP [id number] Problems, Conditions, and Diagnoses Code Display Name Description Problem Type Effective Dates Data Source(s) C78.7 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 Secondary malignant neoplasm of liver and intrahepatic bile duct Diagnosis 04/16/2020 04:49:11 PM [facility] C18.9 Malignant neoplasm of colon, unspecified Malignant neoplasm of colon, unspecified Diagnosis 04/16/2020 04:49:11 PM [place] [facility] C22.9 Malignant neoplasm of liver, not specifi ed as primary or secondary Malignant neoplasm of liver, not specifi Diagnosis 04/07/2020 10:38:00 AM [facility] R16.0 Hepatomegaly, not elsewhere classified H epatomegaly, not elsewhere classified Diagnosis 04/07/2020 10:38:00 AM [facility] 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 Neoplasm of unspecified behavior of dige Diagnosis 04/02/2020 11:59:13 AM [facility] U07.1 COVID-19 COVID-19 Diagnosis 04/02/2020 11:59:13 AM [facility] D23.9 [id number] Dermatofibroma Problem 03/19/2021 12:00:00 A M EDT eCW1 ([facility]) Z12.83 [id number] Screening exam for skin cancer Problem 03/19/2021 12:00:00 AM EDT eCW1 ([facility]) W57.XXXA [id number] Bug bite, initial encounter Problem 03/19/2021 12:00:00 AM EDT eCW1 ([facility]) D18.01 [id number] Melendez angioma Problem 03/19/2021 12:00:00 A M EDT eCW1 ([facility]) L82.1 [id number] Seborrheic keratoses Problem 03/19/2021 12:0 0:00 AM EDT eCW1 ([facility]) Z86.018 [id number] History of dysplastic nevus Problem 03/19/2021 12:00:00 AM EDT eCW1 ([facility]) D22.9 [id number] Acral nevus Problem 03/19/2021 12:00:00 AM E DT eCW1 ([facility]) Z86.007 [id number] 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) Problem 03/19/2021 12:00:00 AM EDT eCW1 ([facility]) D22.9 [id number] Melanocytic nevus of skin Problem 03/19/2021 12:00:00 AM EDT eCW1 ([facility]) Surgeries/Procedures Procedure Description Date Indications Data Source(s) OFFICE OUTPATIENT NEW 30 MINUTES 12/25/2020 12:00:00 A M EDT MEDADELAIDA ([facility], ) US GUIDANCE NEEDLE PLACEMENT RS&I <td>US GUIDED LIVER BIOPSY</td><td>Routine</td><td>04/07/2020 12:33 PM EST</td><td> Malignant neoplasm of liver</td><td> </td> 04/07/2020 05:33:21 PM EST Malignant neoplasm of liver [facility] Malignant neoplasm of liver THROMBOPLASTIN TIME PARTIAL PLASMA/WHOLE BLOOD <td>APTT</td><td>Routine</td><td>04/02/2020 10:40 AM EST</td><td> Neoplasm of liver</td><td> </td> 04/02/2020 03:40:00 PM EST Neoplasm of liver [facility] Neoplasm of liver PROTHROMBIN TIME <td>PROTIME-INR</td><td>Rout ine</td><td>04/02/2020 10:40 AM EST</td><td> Neoplasm of liver</td><td> </td> 04/02/2020 03:40:00 PM EST Neoplasm of liver [facility] Neoplasm of liver BLOOD COUNT COMPLETE AUTO&AUTO DIFRNTL WBC COUNT <td>C BC AND DIFFERENTIAL</td><td>Routine</td><td>04/02/2020 10:40 AM EST</td><td> Neoplasm of liver</td><td> </td> 04/02/2020 03:40:00 PM EST Neoplasm of liver [facility] Neoplasm of liver BASIC METABOLIC PANEL CALCIUM TOTAL <td>BASIC METABOLI C PANEL</td><td>Routine</td><td>04/02/2020 10:40 AM EST</td><td> Neoplasm of liver</td><td> </td> 04/02/2020 03:40:00 PM EST Neoplasm of liver [facility] Neoplasm of liver Results ID Date Data Source [id number] 08/01/2020 03:10:00 PM EST [facility] Name Value Range Interpretation Code Description Data Romi rce(s) Supporting Document(s) SARS coronavirus 2 RNA panel NOT DETECTED [facility] This lab was ordered by [facility] and reported by [facility]. ID Date Data Source [id number] 07/24/2020 02:55:[address] [facility] Name Value Range Interpretation Code Description Data Romi rce(s) Supporting Document(s) Leukocytes [#/volume] in Blood by Automated count 5.7 10*3/uL 4.45-[address] [facility] Erythrocytes [#/volume] in Blood by Automated count 5.32 10*6/uL 4.3- 6.[address] [facility] Hemoglobin [Moles/volume] in Blood 17.5 g/dL 13-[address] [facility] Hematocrit [Volume Fraction] of Blood by Automated count 53.3 % 42-[address] [facility] Erythrocyte mean corpuscular volume [Ent itic volume] in Cord blood by Automated count 100.2 fL 80-96 Above high normal [facility] Erythrocyte mean corpuscular hemoglobin [Entitic mass] by Automated count 32.9 pg 27-31 Above high normal [facility] Erythrocyte mean corpuscular hemoglobin concentration [Mass/volume] in Cord blood 32.8 g/dL 33-37 Below low normal [facility] Erythrocyte distribution width [Entitic volume] by Automated count 15 % 11-[address] [facility] Platelets [#/volume] in Blood by Automated count 150 10*3/uL 130-[address] [facility] Platelet mean volume [Entitic volume] in Blood 10.2 fL 9.1-13.[address] [facility] Neutrophils/100 leukocytes in Blood by Automated count 58.5 % 41- [address] [facility] Neutrophils [#/volume] in Blood by Automated count 3.4 U 1.7-7.[address] [facility] Lymphocytes/100 leukocytes in Blood by Automated count 24.9 % 14- [address] [facility] Lymphocytes [#/volume] in Blood by Automated count 1.4 U 0.6-4.[address] [facility] Monocytes/100 leukocytes in Blood by Automated count 12.3 % 4-[address] [facility] Monocytes [#/volume] in Blood by Automated count 0.7 U 0.2-1.[address] [facility] Eosinophils/100 leukocytes in Blood by Automated count 3.2 % 0-[address] [facility] Eosinophils [#/volume] in Blood by Automated count 0.2 U 0.0-0.[address] [facility] Basophils/100 leukocytes in Blood by Automated count 0.7 % 0.4-[address] [facility] Basophils [#/volume] in Blood by Automated count 0.0 U 0.0-0.[address] [facility] NUCLEATED RED BLOOD CELL 0 % [facility] NUCLEATED RED BLOOD CELL# 0 U [facility] Immature granulocytes [Presence] in Blood by Automated count 0-[address] [facility] Immature granulocytes [#/volume] in Blood by Automated count 0.0 U 0-0.[address] [facility] Manual Differential panel - Blood NO [facility] ID Date Data Source [id number] 05/28/2020 10:25:00 AM [facility] Surgical Pathology ReportName: ELISHA YORK HARDMRN: [id number] Number: [id number] Date: 05/27/2020 00:00Received Date: 05/27/2020 10:42Physician(s): ELENITA HORTA MD DHIR, MASHAAL, MDSpecimen(s) ReceivedA: Slides received for consultationClinical HistorySecond opinion.DiagnosisSLIDE CONSULT: [id number], 04/07/20LIVER, BIOPSY: METASTATIC MODERATELY DIFFERENTIATED ADENOCARCINOMACONSISTENT WITH COLON PRIMARYElectronically Signed By Quynh Hood M.D., Attending Zfqjueaadso86/30/2020 10:25:06 Gross DescriptionReceived from [facility], in [place], [place]. are 3H and E stained slides and 7 specially stained slides, labeled [id number],with the corresponding pathology report. Microscopic DescriptionThe tumor cells are positive for CK20, CDX2, SATB2 and negative for CK7.This report may include one or more immunohistochemical stain results thatuse analyte specific reagents. All positive and negative controls havebeen reviewed by the attending pathologist and are satisfactory. The testswere developed and their performance characteristics determined by [facility] Pathology department. They have not been cleared or approved by the USFood and Drug Administration. The FDA has d etermined that such clearanceor approval is not necessary. Name Value Range Interpretation Code Description Data Romi rce(s) Supporting Document(s) ID Date Data Source [id number] 04/16/2020 04:47:11 PM [facility] Name Value Range Interpretation Code Description Data Romi rce(s) Supporting Document(s) Progress Note [facility] [id number]8ONyYZsQmJbNwFBT6 [facility] [file] [id number]= ID Date Data Source [id number] 04/16/2020 04:46:35 PM [facility] Name Value Range Interpretation Code Description Data Romi rce(s) Supporting Document(s) Progress Note [facility] [id number]zXQtNkWlKpHZH1 lbm [file] [id number]+[id number]+[id number]FGY3CAAp== ID Date Data Source [id number] 04/17/2020 03:06:29 AM EST [facility] Name Value Range Interpretation Code Description Data Romi rce(s) Supporting Document(s) Fibrosis score 0.17 0.00-0.21 [facility] Fibrosis stage [facility] (NOTE) F0 - No fibrosis Necroinflammatory activity score 0.05 0.00-0.17 [facility] Necroinflammatory activity grade [facility] (NOTE)RESULT:A0-No activity Wsyaf-1-Fcrxbpwcnphff [Mass/volume] in Serum or Plasma 143 mg/dL 110 -276 [facility] Haptoglobin [Mass/volume] in Serum or Plasma 92 mg/dL 32-363 [facility] Apolipoprotein A-I [Mass/volume] in Serum or Plasma 146 mg/dL 101-17 8 [facility] Bilirubin.total [Mass/volume] in Serum or Plasma 0.4 mg/dL 0.0-1.2 [facility] Gamma glutamyl transferase [Enzymatic activity/volume] in Serum or Plasma 23 IU/L 0-65 [facility] Alanine aminotransferase [Enzymatic acti vity/volume] in Serum or Plasma by With P-5'-P 17 IU[facility]L 0-[facility] Comment(NOTE)Quantitative results of 6 b iochemical tests are analyzed usinga computational algorithm to provide a quantitative surrogatemarker (0.0-1.0) for liver fibrosis (METAVIR F0-F4) and fornecroinflammatory activity (METAVIR A0- A3).Comment(NOTE) <0.21 = Stage F0 - No fibrosis0.21 - 0.27 = Stage F0 - F10.27 - 0.31 = Stage F1 - Portal fibrosis0.31 - 0.48 = Stage F1 - F20.48 - 0.58 = Stage F2 - Bridging fibrosis with few septa0.58 - 0.72 = Stage F3 - Bridging fibrosis with many septa0.72 - 0.74 = Stage F3 - F4 >0.74 = Stage F4 - Cirrhosis Reference lab test results [facility] (NOTE) <0.17 = Grade A0 - No Activit y0.17 - 0.29 = Grade A0 - A10.29 - 0.36 = Grade A1 - Minimal activity0.36 - 0.52 = Grade A1 - A20.52 - 0.60 = Grade A2 - Moderate activity0.60 - 0.62 = Grade A2 - A3 >0.62 = Grade A3 - Severe activityComment(NOTE)The negative predictive value of a Fibrotest score <0.31 (absence ofclinically significant fibrosis) was 85% when compared to liverbiopsy in 1,270 HCV infected patients with a 38% prevalence ofsignificant liver fibrosis (F2, 3 or 4). The positive predictivevalue of a Fibro-test score >0.48 (F2, 3, 4) was 61% in that samepatient cohort. HCV FibroSURE is not recommended in patients withGilbert Disease, acute hemolysis (e.g. HCV ribavirin therapy mediatedhemolysis) acute hepa-titis of the liver, extra-hepatic cholestasis,transplant patients, and/or renal insufficiency patients. Any of these clinical situations may lead to inaccurate quantitativepredictions of fibrosis and necroinflammatory activity in the liver.Comment(NOTE)This test was developed and its performance characteristicsdetermined by [employer]. It has not been cleared or approved by theFood and Drug Administration. The FDA has determined that suchclearance or approval is not necessary.For questions regarding this report please contact customer serviceat .Performed At: [address] [id number] Paniagua MD Ph:[phone] ID Date Data Source [id number] 04/14/2020 04:22:54 PM [facility] Name Value Range Interpretation Code Description Data Romi rce(s) Supporting Document(s) Carcinoembryonic Ag [Mass/volume] in Serum or Plasma 139.0 ng/ml <3.4 H [facility] Levels of CEA should not be interpreted as absoulute evidence of the presence or absence of disease. It should not be used as a screening test for Cancer. CEA values obtained using different methodologies cannot be used interchangeably. This method is manufactured by [employer] and is an electrochemiluminesence immunoassay. ID Date Data Source [id number] 04/14/2020 04:22:54 PM [facility] Name Value Range Interpretation Code Description Data Romi rce(s) Supporting Document(s) Albumin [Mass/volume] in Serum or Plasma by Bromocresol green (BCG) dye binding method 4.5 g/dL 3.5-5.2 [facility] Bilirubin.total [Mass/volume] in Serum or Plasma 0.5 mg/dL <1.2 [facility] Bilirubin.direct [Mass/volume] in Serum or Plasma <0.3 [facility] Alkaline phosphatase [Enzymatic activity/volume] in Serum or Plasma 63 U/L 40-129 [facility] Aspartate aminotransferase [Enzymatic activity/volume] in Serum or Plasma 17 U/L <40 [facility] Alanine aminotransferase [Enzymatic activity/volume] in Seru m or Plasma 15 U/L <41 [facility] Protein [Mass/volume] in Serum or Plasma 7.2 g/dL 6.4-8.3 [facility] ID Date Data Source [id number] 04/14/2020 04:22:54 PM [facility] Name Value Range Interpretation Code Description Data Romi rce(s) Supporting Document(s) Bicarbonate [Moles/volume] in Serum 24 mmol/L 22-29 [facility] Chloride [Moles/volume] in Serum or Plasma 106 mmol/L 98-107 [facility] Creatinine [Mass/volume] in Serum or Plasma 1.08 mg/dL 0.70-1.20 [facility] Glucose [Mass/volume] in Serum or Plasma 92 mg/dL 70-140 [facility] Potassium [Moles/volume] in Serum or Plasma 4.1 mmol/L 3.4-5.1 [facility] Sodium [Moles/volume] in Serum or Plasma 142 mmol/L 136-145 [facility] Urea nitrogen [Mass/volume] in Serum or Plasma 18 mg/dL 8-23 [facility] Anion gap 3 in Serum or Plasma 12 mmol/L 8-15 [facility] Osmolality of Serum or Plasma by calculation 295 mosm/kg 275-300 [facility] Creatinine/Urea nitrogen [Mass Ratio] in Serum or Plasma 17 [facility] Calcium [Mass/volume] in Serum or Plasma 9.8 mg/dL 8.8-10.2 [facility] Glomerular filtration rate/1.73 sq M pre dicted among non-blacks [Volume Rate/Area] in Serum or Plasma by Creatinine-based formula (MDRD) 71 mL/min/1.73m2 >60 [facility] Glomerular filtration rate/1.73 sq M pre dicted among blacks [Volume Rate/Area] in Serum or Plasma by Creatinine-based formula (MDRD) 82 mL/min/1.73m2 >60 [facility] ID Date Data Source [id number] 04/14/2020 05:59:14 PM EST [facility] Name Value Range Interpretation Code Description Data Romi rce(s) Supporting Document(s) Leukocytes [#/volume] in Blood by Automated count 9.0 10*3/uL 4-10 [facility] Erythrocytes [#/volume] in Blood by Automated count 5.79 10*6/uL 4.6- 6.1 [facility] Hemoglobin [Mass/volume] in Blood 17.9 g/dL 13.5-18 [facility] Hematocrit [Volume Fraction] of Blood by Automated count 55.2 % 4 1-53 [facility] Called to and read back by Christel Jimenes Rn at [phone] by [phone] Erythrocyte mean corpuscular volume [Entitic volume] by Auto mated count 95.4 fL 80-96 [facility] Erythrocyte mean corpuscular hemoglobin [Entitic mass] by Automated count 30.9 pg 27-33 [facility] Erythrocyte mean corpuscular hemoglobin concentration [Mass/volume] by Automated count 32.4 g/dL 32.0-36.0 [facility] E[facility]th[facility] distribution width [Ratio] by Automated count 13.8 % 11.5-14.5 [facility] Platelets [#/volume] in Blood by Automated count 188 10*3/uL 150-400 [facility] Confirmed ID Date Data Source [id number] 04/08/2020 05:10:29 PM EST [facility] [place], [place] [address]Tel# Surgical Pathology ReportAccession #:[id number](s) ReceivedA: Liver lesionClinical Diagnosis and HistoryColon cancer, ? liver mets, liver lesionDIAGNOSISLIVER, NEEDLE BIOPSY: METASTATIC ADENOCARCINOMA CONSISTENT WITH COLONIC PRIMARY.CommentsThe sections contain liver with multiple sites of infiltration by anadenocarcinoma composed of tall columnar epithelial cells exhibiting mildto moderate nuclear atypia. A cytokeratin 20 immunostain is positive. CDX2 and SATB2 immunostains are also positive. Cytokeratin 7 immunostainis negative. 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 An iron stain was also performed to evaluate the natureof pigment in a focus of benign hepatocytes. The iron stain is negative. Gross DescriptionReceived in formalin labeled "left lobe liver lesion" are two whitecylindrical fragments of tissue ranging from 0.2 to 1.5 cm in length. Entirely submitted as A1. Fine needle biopsy protocol. jglyari/amy Reported: 04/08/2020Electronically Signed Out By Rober Perez MD [facility] [place] [id number] component performed at [facility], [facility], [address] [place] [address], [id number].Reported at [facility], [address] [place] [address], [id number]. This report may includeimmunohistochemical or in-situ hybridization results. Testing wasdeveloped and the performance characteristics determined by [employer] as required by CLIA '88. The FDA hasdetermined that approval for specific use is not necessary for clinicaluse. The quality of Hematoxylin and Eosin stains and as applicable, forall immunohistochemical and/or special stains, including positive andnegative controls, were reviewed and considered appropriate.ICD codes C78.7CPT codesA: 43020J, 85434m, 00306(3), 69080Z Name Value Range Interpretation Code Description Data Romi rce(s) Supporting Document(s) ID Date Data Source [id number] 04/07/2020 01:23:33 PM EST [address] [address]Frrqmqh Name: NICOLAS YORKB: 1955Sex: MOrdering Provider: DIRK Escalante Prov: DIRK Piña Provider: Procedure Performed: US GUIDED LIVER BIOPSYExam Date: 04/07/2020 12:33MRN: [id number] Number: [id number] Class: OutpatientAccount #: [id number] for Exam: Liver massJames is a 64-year-old male with a left lobe liver mass. Liver mass biopsy has been requested. Informed consent was obtained. Potential complications of the procedure include but are not limited to: bleeding, infection, injury to adjacent blood vessels or organs and medication reaction. Ultrasound was used to localize the liver mass and to locate a safe site for performing the biopsy. The overlying skin was marked, prepped and draped in usual sterile fashion. Sterile barrier technique was utilized throughout the procedure. Moderate sedation was administered. Local anesthesia was obtained with 1% lidocaine. Under ultra sound guidance with image documentation, a 19-gauge introducer was advanced into a liver mass in the left lobe. Three samples of tissue from the mass were obtained with a 20-gauge needle. The tissue samples were placed in formalin and sent to the lab for analysis. The introducer was removed and dressings were applied. There were no immediate complications noted. The patient tolerated the procedure well. The procedure was performed by Moni Diaz PA-C under the direct supervision of Dr. Smith. During the procedure the patient received Versed 2 mg IV and fentanyl 100 mcg IV. A total of 17 minutes of moderate sedation services were rendered during the procedure. There was an interventional radiology registered nurse present in the room to assist in the monitoring of the patient's level of consciousness and physiologic status.Impression: Ultrasound-guided liver mass biopsy under moderate sedation as described above.Report electronically approved by: MONI DIAZ On 04/07/2020 1:11 PMThe procedure described above was performed under my supervision and I agree with this reportReport electronically signed by: HOSSEIN SMITH On 04/07/2020 1:23 PMWorkstation ID: [id number] Name Value Range Interpretation Code Description Data Romi rce(s) Supporting Document(s) ID Date Data Source [id number] 04/07/2020 12:44:09 PM EST [facility] NT INFORMATIONPatient MRN Name Date of Age Gend*PT [id number] Nicolas York 1955 64 years M HOPPT Location Admission Date/Time Visit ID Attending [id number] 04/07/20 1038 --- Silvana Jackson MD([id number]) EPI ID CSN Admitting Provider [id number] Silvana Jackson MD([id number]) Attestation signed by Hossein Smith MD at 04/07/2020 12:44 PMProcedure performed under my supervision, I agree with above report.Hossein Smith MD 04/07/2020 12:44 PMDepartment of Interventional Radiology ---------Brief Operative/Invasive Procedure Mandy YorkDATE OF : 1955MRN # [id number] DATE: 04/07/2020PROVIDER:Moni Diaz, PAPROCEDURE:US guided liver mass biopsyPRE-PROCEDURE DIAGNOSIS:Liver massPOST MS OCEDURE DIAGNOSIS:Liver massANESTHESIA TYPE:Moderate sedation, local-1% lidocaine (8cc)DRAINS:NoneSPECIMENS:Liver mass tissueESTIMATED BLOOD LOSS: MinimalGRAFTS OR IMPLANTS:NoneFINDINGS: Consistent with operative diagnosisCOMPLICATIONS: NoneScott Channels, PADepartment of Interventional Radiology Name Value Range Interpretation Code Description Data Romi rce(s) Supporting Document(s) ID Date Data Source [id number] 04/07/2020 11:45:26 AM EST [facility] NT INFORMATIONPatient MRN Name Date of Age Gend*PT [id number] Nicolas York 1955 64 years M HOPPT Location Admission Date/Time Visit ID Attending [id number] 04/07/20 1038 --- Silvana Jackson MD([id number]) EPI ID CSN Admitting Provider [id number] Silvana Jackson MD([id number])H&P reviewed. Pt examined and there are no changes to the H&P.Signature: Moni Bush: April 07, 2020Time: 11:45 AM Name Value Range Interpretation Code Description Data Romi rce(s) Supporting Document(s) ID Date Data Source [id number] 04/02/2020 11:10:35 AM EST [facility] NT INFORMATIONPatient MRN Name Date of Age Gend*PT [id number] York, Nicolas Barahona 1955 64 years M OPPT Location Admission Date/Time Visit ID Attending Provider --- --- --- Silvana Jackson MD([id number]) EPI ID CSN Admitting Provider [id number] ---INTERVENTIONAL RADIOLOGY AND OUT PATIENT HISTORY PHYSICALName: Nicolas Barahona York : 1955 Sex: male Care Provider: WIL MADRIGALIAGNOSIS: Malignant neoplasm of liverTREATMENT/PROCEDURE: Ultrasound-guided liver biopsy on 04/07/2020.HISTORY OF PRESENT ILLNESS: This is a 64 years old white male with a history ofcolon cancer who underwent colectomy on 09/20/2018. Patient states recent PETscan showed spot on his liver. He complains of occasional abdominal pressureand constipation. Denies abdominal pain, nausea, vomiting, diarrhea or blood inthe stool. He has opted to undergo the above- mentioned procedure to establishdiagnosis and guide further therapy.PAST MEDICAL HISTORY:Past Medical History:Diagnosis Date Actinic keratosis Anxiety BPH (benign prostatic hyperplasia) Colon polyp Dry eye syndrome Dysplastic nevi 2016 Early cataracts, bilateral ED (erectile dysfunction) Hypertension Ileus following gastrointestinal surgery Malignant neoplasm of liver Malignant neoplasm of sigmoid colon 2019 s/p colectomyPAST SURGICAL HISTORY:Past Surgical History:Procedure Laterality Date APPENDECTOMY 2009 COLECTOMY N/A 09/20/2018 Procedure: COLECTOMY LOWER ANTERIOR LAPAROSCOPIC CONVERTED TO OPEN; Surgeon:Dirk Teague MD; Laterality: N/A; COLONOSCOPY FLEXIBLE SIGMOIDOSCOPY N/A 09/15/2018 Procedure: COLONOSCOPY WITH ANESTHESIA WITH POLYPECTOMY AND COLON TATTOOING;Surgeon: Dirk Teague MD; Laterality: N/A; HAND SURGERY Right 11/1981 crush injury INGUINAL HERNIA REPAIR Right 2008 with mesh NEVUS EXCISION 2016 PUNCTAL PLUGS BILATERAL tear ducts SKIN BIOPSY UMBILICAL HERNIA REPAIR 2016 VASECTOMY 1995ALLERGIES: No Known Drug AllergiesMEDICATIONS:Prior to Admission medicationsMedication Sig Start Date End Date Taking? Authorizing Provideraspirin (ASPIRIN 81) 81 MG EC tablet Take 81 mg by mouth daily HistoricalProviderCristianycloSPORINE (RESTASIS) 0.05 % ophthalmic emulsion A dminister 1 drop to botheyes daily Historical Provider, finasteride (PROSCAR) 5 MG tablet Take 5 mg by mouth nightly HistoricalProvider, lisinopril (PRINIVIL,ZESTRIL) 20 MG tablet Take 20 mg by mouth nightlyHistorical Provider, Genoga-3 Fatty Acids (FISH OIL PO) Take by mouth Historical Provider, Antonioildenafil (VIAGRA) 100 MG tablet Take 100 mg by mouth daily as needed forerectile dysfunction Historical Provider, varenicline (CHANTIX) 1 MG tablet Take 1 mg by mouth daily HistoricalProvider, MDREVIEW OF SYSTEMS:Respiratory: Denies any shortness of breath, cough, yellow sputum pr oduction orwheezing.Cardiovascular: Denies any chest pain, pressure or tightness. Denies anyparoxysmal nocturnal dyspnea or orthopnea.GI: Reports occasional constipation. Denies nausea, vomiting, diarrhea ormelena.Neurologic: Denies any numbness, tingling, tremors or syncope.Vascular: Denies any edema. Denies claudication.BP 140/60 (BP Location: Left upper arm, Patient Position: Sitting) | Pulse 73| Temp 97.6 F (Temporal) | Resp 20 | Ht 1.778 m (5' 10") | Wt (!) 102.6 kg(226 lb 3.2 oz) | SpO2 97% | BMI 32.46 kg/m PHYSICAL EXAM:Airway - 2Mental and Neurological Status: [id number]: Clear to auscultation. No wheezes, rhonchi or crackles.HEART: Rate rhythm regular. S1, S2. No murmur, rub or gallop.ABDOMEN: Bowel sounds positive times four. Soft, non tender. No reboundtenderness. No hepatosplenomegaly. Negative CVAT.EXTREMITIES: Pulses are symmetrical. No edema.04/02/2020 11:10 AMLyudmila Kostiv, GLOBAL SOURCING MANAGER Name Value Range Interpretation Code Description Data Romi rce(s) Supporting Document(s) ID Date Data Source [id number] 04/02/2020 10:40:00 AM EST [facility] ([facility]) Name Value Range Interpretation Code Description Data Romi rce(s) Supporting Document(s) aPTT in Platelet poor plasma by Coagulation assay 30.1 s 22.0-34. 3 [facility] ([facility]) ID Date Data Source [id number] 04/02/2020 10:40:00 AM EST [facility] ([facility]) Name Value Range Interpretation Code Description Data Romi rce(s) Supporting Document(s) Prothrombin time (PT) 11.0 s 9.2-11.9 [facility] ([facility]) INR in Platelet poor plasma by Coagulation assay 1.06 [facility] ([facility]) SUGGESTED THERAPEUTIC RANGES USING INR F OR STABILIZED ANTICOAGULATED PATIENTS: STANDARD DOSE THERAPY INR 2.0-3.0 DVT, PE, PREVENT DVT OR EMBOLISM HIGH DOSE THERAPY INR 2.5-3.5 PREVENT EMBOLISM FROM MECHANICAL HEART VALVE ID Date Data Source [id number] 04/02/2020 10:40:00 AM EST [facility] ([facility]) Name Value Range Interpretation Code Description Data Romi rce(s) Supporting Document(s) Hemoglobin [Mass/volume] in Blood 18.3 g/dL 13.5-18.0 Above high no rmal [facility] ([facility]) Erythrocytes [#/volume] in Blood by Automated count 5.81 10*6/uL 4.60 -6.10 [facility] ([facility]) Leukocytes [#/volume] in Blood by Automated count 7.7 10*3/uL 4.1-11. 0 [facility] ([facility]) Hematocrit [Volume Fraction] of Blood by Automated count 54.4 % 41.0-53.0 Above high normal [facility] ([facility]) Erythrocyte mean corpuscular volume [Entitic volume] by Auto mated count 93.5 fL 80.0-95.0 [facility] ([facility]) Erythrocyte mean corpuscular hemoglobin [Entitic mass] by Automated count 31.5 pg 27.0-32.0 [facility] ([facility] Erythrocyte mean corpuscular hemoglobin concentration [Mass/volume] by Automated count 33.6 g/dL 32.0-36.0 [facility] ([facility]) Platelet mean volume [Entitic volume] in Blood by Automated count 7.9 fL 7.1-10.7 [facility] ([facility]) Erythrocyte distribution width [Ratio] by Automated count 13.7 % 10.5-14.5 [facility] ([facility]) Platelets [#/volume] in Blood by Automated count 226 10*3/uL 150-450 [facility] ([facility]) Monocytes/100 leukocytes in Blood by Automated count 8.3 % 0.0-8.0 Above high normal [facility] ([facility]) Neutrophils/100 leukocytes in Blood by Automated count 73.8 % 35. 0-75.0 [facility] ([facility]) Lymphocytes/100 leukocytes in Blood by Automated count 16.5 % 16. 0-52.0 [facility] ([facility]) Eosinophils/100 leukocytes in Blood by Automated count 0.7 % 0.0 -5.0 [facility] ([facility]) Neutrophils [#/volume] in Blood 5.7 10*3/uL 1.8-7.7 [facility] ([facility]) Basophils/100 leukocytes in Blood by Automated count 0.7 % 0.0-4 .0 [facility] ([facility]) Eosinophils [#/volume] in Blood 0.1 10*3/uL 0.0-0.5 [facility] ([facility]) Lymphocytes [#/volume] in Blood 1.3 10*3/uL 1.2-4.8 [facility] ([facility]) Monocytes [#/volume] in Blood 0.6 10*3/uL 0.0-0.8 [facility] ([facility]) Basophils [#/volume] in Blood 0.1 10*3/uL 0.0-0.2 [facility] ([facility]) ID Date Data Source [id number] 04/02/2020 10:40:00 AM EST [facility] ([facility]) Name Value Range Interpretation Code Description Data Romi rce(s) Supporting Document(s) Sodium [Moles/volume] in Serum or Plasma 139 mmol/L 136-145 [facility] ([facility]) Carbon dioxide, total [Moles/volume] in Serum or Plasma 24 mmol/L 22 -31 [facility] ([facility]) Potassium [Moles/volume] in Serum or Plasma 4.3 mmol/L 3.6-5.2 [facility] ([facility]) Chloride [Moles/volume] in Serum or Plasma 108 mmol/L 100-108 [facility] ([facility]) Anion gap 3 in Serum or Plasma 7 mmol/L 7-16 [facility] ([facility]) Creatinine [Mass/volume] in Serum or Plasma 1.12 mg/dL 0.80-1.30 [facility] ([facility]) Urea nitrogen [Mass/volume] in Serum or Plasma 17 mg/dL 7-24 [facility] ([facility]) Urea nitrogen/Creatinine [Mass Ratio] in Serum or Plasma 15.2 RATIO 10.0-20.0 [facility] ([facility]) Glucose [Mass/volume] in Serum or Plasma 103 mg/dL 70-99 Above high normal [facility] ([facility]) Calcium [Mass/volume] in Serum or Plasma 9.3 mg/dL 8.4-10.2 [facility] ([facility]) Glomerular filtration rate/1.73 sq M.pre dicted [Volume Rate/Area] in Serum or Plasma by Creatinine-based formula (MDRD) Laboratory test result [facility] ([facility]) Laboratory test finding (navigational concept) Laboratory test result [facility] ([facility]) <content> </content>
<content>RUBEN L KIDNEY FUNCTION</content>
<content>OR MILD DISEASE - GFR >OR= 60</content>
<content>CHRONIC KIDNEY DISEASE - GFR 15 - 59</content>
<content>RENAL FAILURE - GFR <15</content>
<content> </content>< br/><content>Est. GFR calculation based on the MDRD</content>
<content>study equation, which assumes a steady</content>
<content>state for creatinine. Est. GFR should not</content>
<content>be used for medication dosing.</content>
<content></content> Glomerular filtration rate/1.73 sq M pre dicted among blacks [Volume Rate/Area] in Serum or Plasma by Creatinine-based formula (MDRD) Laboratory test result [facility] ([facility]) ID Date Data Source [id number] 04/02/2020 07:54:46 PM EST [facility] Name Value Range Interpretation Code Description Data Romi rce(s) Supporting Document(s) APTT 30.1 s (22.0-34.3) [facility] ID Date Data Source [id number] 04/02/2020 07:54:46 PM EST [facility] Name Value Range Interpretation Code Description Data Romi rce(s) Supporting Document(s) PT 11.0 s (9.2-11.9) [facility] INR 1.06 [facility] SUGGESTED THERAPEUTIC RANGES USING INR F ORSTABILIZED ANTICOAGULATED PATIENTS:STANDARD DOSE THERAPY INR 2.0-3.0 DVT, PE, PREVENT DVT OR EMBOLISMHIGH DOSE THERAPY INR 2.5-3.5 PREVENT EMBOLISM FROM MECHANICAL HEART VALVE ID Date Data Source [id number] 04/02/2020 07:23:50 PM EST [facility] Name Value Range Interpretation Code Description Data Romi rce(s) Supporting Document(s) WBC 7.7 10*3/uL (4.1-11.0) [facility] [place] RBC 5.81 10*6/uL (4.60-6.10) [facility] HGB 18.3 g/dL (13.5-18.0) H [facility] HCT 54.4 % (41.0-53.0) [facility] MCV 93.5 fL (80.0-95.0) [facility] MCH 31.5 pg (27.0-32.0) [facility] MCHC 33.6 g/dL (32.0-36.0) [facility] RDW 13.7 % (10.5-14.5) [facility] PLT 226 10*3/uL (150-450) [facility] MPV 7.9 fL (7.1-10.7) [facility] NEUT % 73.8 % (35.0-75.0) [facility] LYMPH % 16.5 % (16.0-52.0) [facility] MONO % 8.3 % (0.0-8.0) [facility] EOS % 0.7 % (0.0-5.0) [facility] BASO % 0.7 % (0.0-4.0) [facility] NEUT # 5.7 10*3/uL (1.8-7.7) [facility] LYMPH # 1.3 10*3/uL (1.2-4.8) [facility] MONO # 0.6 10*3/uL (0.0-0.8) [facility] Eosinophils [#/volume] in Blood by Automated count 0.1 10*3/uL (0.0-0 .5) [facility] BASO # 0.1 10*3/uL (0.0-0.2) [facility] ID Date Data Source [id number] 04/02/2020 07:23:35 PM EST [facility] Name Value Range Interpretation Code Description Data Romi rce(s) Supporting Document(s) SODIUM 139 mmol/L (136-145) [facility] POTASSIUM 4.3 mmol/L (3.6-5.2) [facility] CHLORIDE 108 mmol/L (100-108) [facility] CO2 24 mmol/L (22-31) [facility] ANION GAP 7 mmol/L (7-16) [facility] UREA NITROGEN 17 mg/dL (7-24) [facility] CREATININE 1.12 mg/dL (0.80-1.30) [facility] BUN/CREAT RATIO 15.2 RATIO (10.0-20.0) [facility] GLUCOSE 103 mg/dL (70-99) H [facility] CALCIUM 9.3 mg/dL (8.4-10.2) [facility] GFR >60 ml/min/1.73m2 (>59) [facility] GFR ( AMER) >60 ml/min/1.73m2 (>59) [facility] GFR INTERPRETATION Lab [facility] [place] --NORMAL KIDNEY FUNCTION OR MILD DISEASE - GFR >OR= 60CHRONIC KIDNEY DISEASE - GFR 15 - 59RENAL FAILURE - GFR <15 Est. GFR calculation based on the MDRDstudy equation, which assumes a steadystate for creatinine. Est. GFR should notbe used for medication dosing. ID Date Data Source [id number] 04/02/2020 09:50:00 AM EST [facility] Name Value Range Interpretation Code Description Data Romi rce(s) Supporting Document(s) SARS coronavirus 2 RNA [facility] This lab was ordered by [facility] and reported by [employer]. ID Date Data Source [id number] 04/03/2020 10:08:37 AM EST [facility] Name Value Range Interpretation Code Description Data Romi rce(s) Supporting Document(s) SARS-COV-2 PRANAV [facility] Not DetectedReference range: Not Detecte d Testing was performed using the jasson(R) SARS-CoV-2 test. This nucleic acid amplification test was developed and its performance characteristics determined by [employer]. Nucleic acid amplification tests include PCR and TMA. This test has not been FDA cleared or approved. This test has been authorized by FDA under an Emergency Use Authorization (EUA). This test is only authorized for the duration of time the declaration that circumstances exist justifying the authorization of the emergency use of in vitro diagnostic tests for detection of SARS-CoV-2 virus and/or diagnosis of COVID-19 infection under section 564(b)(1) of the Act, 21 U.S.C. 360bbb-3(b) (1), unless the authorization is terminated or revoked sooner. When diagnostic testing is negative, the possibility of a false negative result should be considered in the context of a patient's recent exposures and the presence of clinical signs and symptoms consistent with COVID-19. An individual without symptoms of COVID- 19 and who is not shedding SARS-CoV-2 virus would expect to have a negative (not detected) result in this assay. Performed At: [address] [id number] Romulo Ryan MD Ph:[phone] Procedure Social History Code Duration Value Status Description Data Source(s ) Smoking 03/19/2021 12:00:00 AM EDT Former Smoker completed Former Smoker eCW1 ([facility]) Smoking 05/09/2020 12:00:00 AM EST Former Smoker completed Former Smoker eCW1 ([facility]) Alcohol intake 04/14/2020 12:00:00 AM EST Current drinker of al cohol (finding) completed Current drinker of alcohol (finding) [facility] Tobacco use and exposure 04/14/2020 12:00:00 AM EST Never used co mpleted Never used [facility] Cigarettes smoked current (pack per day) - Reported 04/14/20 12:00:00 AM EST UNK completed [facility] Smoking 04/14/2020 12:00:00 AM EST Current every day smoker co mpleted Current every day smoker [facility] Alcohol intake 04/07/2020 12:00:00 AM EST Yes completed [facility] Cigarette pack-years 04/07/2020 12:00:00 AM EST UNK completed [facility] Cigarettes smoked current (pack per day) - Reported 04/07/20 12:00:00 AM EST UNK completed [facility] Smoking 04/07/2020 12:00:00 AM EST Current every day smoker co mpleted Current every day smoker [facility] Alcohol intake 04/02/2020 12:00:00 AM EST Yes completed [facility] Cigarette pack-years 04/02/2020 12:00:00 AM EST UNK completed [facility] Cigarettes smoked current (pack per day) - Reported 04/02/20 20 12:00:00 AM EST UNK completed [facility] Smoking 04/02/2020 12:00:00 AM EST Current every day smoker co mpleted Current every day smoker [facility] Vital Signs ID Date Data Source UNK Name Value Range Interpretation Code Description Data Source(s) Body weight 234.2 [lb_av] 234.2 [lb_av] eCW1 ([facility]) Body weight 106.23 kg 106.23 kg [facility] ([facility]) Body height [in_i] W1 ([facility]) Body mass index (BMI) [Ratio] 33.60 kg/m2 33.60 kg/m2 W1 ([facility]) Systolic blood pressure 144 mm[Hg] 144 mm[Hg] e CW1 ([facility]) Diastolic blood pressure 88 mm[Hg] 88 mm[Hg] eCW1 ([facility]) Systolic blood pressure 147 mm[Hg] 147 mm[Hg] M EDENT ([facility], ) Diastolic blood pressure 73 mm[Hg] 73 mm[Hg] [facility] ([facility], ) Body height 70 [in_i] 70 [in_i] [facility] ([facility], ) 5'10" Body weight 226.00 [lb_av] 226.00 [lb_av] MEDEN T ([facility], ) Body mass index (BMI) [Ratio] 32.4 kg/m2 32.4 k g/m2 [facility] ([facility], ) [place] body weight 166 [lb_av] 166 [lb_av] MEDEN T ([facility], ) Body weight 102.514 kg 102.514 kg [facility] ([facility], ) Body surface area Derived from formula 2.20 m2 2.20 m2 [facility] ([facility], ) Diastolic blood pressure 74 mm[Hg] 74 mm[Hg] eCW1 ([facility]) Body weight 228 [lb_av] 228 [lb_av] eCW1 ([facility]) Body height [in_i] eCW1 ([facility]) Body mass index (BMI) [Ratio] 44.52 kg/m2 44.52 kg/m2 eCW1 ([facility]) Systolic blood pressure 130 mm[Hg] 130 mm[Hg] e CW1 ([facility]) Systolic blood pressure 161 mm[Hg] 161 mm[Hg] [facility] Diastolic blood pressure 50 mm[Hg] 50 mm[Hg] [facility] Heart rate 64 /min 64 /min [facility] Body temperature 36.56 Zulay 36.56 Zulay [facility] Oxygen saturation in Arterial blood by Pulse oximetry 95 % 95 % [facility] Respiratory rate 16 /min 16 /min [facility] Systolic blood pressure 140 mm[Hg] 140 mm[Hg] [facility] Diastolic blood pressure 60 mm[Hg] 60 mm[Hg] [facility] Heart rate 73 /min 73 /min [facility] Body temperature 36.44 Zulay 36.44 Zulay [facility] Respiratory rate 20 /min 20 /min [facility] Oxygen saturation in Arterial blood by Pulse oximetry 97 % 97 % [facility] Body height 177.8 cm 177.8 cm [facility] Body weight 102.604 kg 102.604 kg [facility] Body mass index (BMI) [Ratio] 32.46 kg/m2 32.46 kg/m2 [facility] ID Date Data Source [id number] 07/18/2020 02:53:52 PM [facility] Name Value Range Interpretation Code Description Data Source(s) WEIGHT RECORDED 221 lb 221 lb [facility] Body height Measured 70 in 70 in [facility] Patient Treatment Plan of Care Planned Activity Planned Date Details Description Data Source (s) Mupirocin 0.02 MG/MG Topical Ointment 03/19/2021 12:00:00 AM EDT eCW1 ([facility]) Finasteride 5 MG Oral Tablet 06/25/2019 12:00:00 AM EST KADE ([facility])
[2021-04-10] MEDS ORDERED: propofoL 500 MG/50 ML VIAL As Ordered ONE (09:21)
[2021-04-10] MEDS ORDERED: LIDOCAINE 2% 100MG/5ML SDV (FOR ANES.) As Ordered ONE (09:21)
--- NOTE | 2021-04-10 09:49 | ROOR ---
Patient Name: Nicolas York Procedure Date: 04/10/2021 9:16 AM Date of : 1955 Age: 65 Room: [facility] Gender: Male Note Status: Finalized Procedure: Colonoscopy Indications: High risk colon cancer surveillance: Personal history of colon cancer, High risk colon cancer surveillance: Personal history of rectosigmoid cancer Providers: Pollo Brian MD Referring MD: SKYLER SANZ MD Requesting Provider: Medicines: Monitored Anesthesia Care Complications: No immediate complications. Procedure: Pre-Anesthesia Assessment: - The heart rate, respiratory rate, oxygen saturations, blood pressure, adequacy of pulmonary ventilation, and response to care were monitored throughout the procedure. The Colonoscope was introduced through the anus and advanced to the terminal ileum, with identification of the appendiceal orifice and IC valve. The colonoscopy was performed without difficulty. The patient tolerated the procedure well. The quality of the bowel preparation was fair. Findings: The perianal and digital rectal examinations were normal. There was evidence of a prior end-to-end colo-rectal anastomosis at 13 cm proximal to the anus. This was patent and was characterized by healthy appearing mucosa. Two sessile polyps were found in the mid transverse colon and hepatic flexure. The polyps were 5 to 6 mm in size. These polyps were removed with a cold snare. Resection and retrieval were complete. Small Internal Hemorrhoids. The exam was otherwise without abnormality on direct and retroflexion views. Impression: - Preparation of the colon was fair. - Patent end-to-end colo-rectal anastomosis, characterized by healthy appearing mucosa. - Two 5 to 6 mm polyps in the mid transverse colon and at the hepatic flexure, removed with a cold snare. Resected and retrieved. - Small Internal Hemorrhoids. - The examination was otherwise normal on direct and retroflexion views. Recommendation: - Repeat colonoscopy for surveillance based on pathology results. (1-3 years dep on path) - Telephone endoscopist for pathology results in 2 weeks. Procedure Code(s): --- Professional --- 31123, Colonoscopy, flexible; with removal of tumor(s), polyp(s), or other lesion(s) by snare technique Diagnosis Code(s): --- Professional --- K63.5, Polyp of colon Z98.0, Intestinal bypass and anastomosis status Z85.048, Personal history of other malignant neoplasm of rectum, rectosigmoid junction, and anus Z85.038, Personal history of other malignant neoplasm of large intestine CPT copyright 2019 [employer]. All rights reserved. The codes documented in this report are preliminary and upon senior enterprise architect review may be revised to meet current compliance requirements. Pollo Brian MD Pollo Brian MD 04/10/2021 9:49:08 AM Electronically signed by Pollo Brian MD Number of Addenda: 0 Note Initiated On: 04/10/2021 9:16 AM Estimated Blood Loss: Estimated blood loss: none.
[2021-04-10 10:00] VITALS: BP 112/64
== END 2021-04-10 10:25 | disposition home or self-care (01) ==
LOC: M OPP 08:17
PROVIDERS: ATTEND Internal Medicine Gastroenterology
DX: Z12.11 Encounter for screening for malignant neoplasm of colon (principal); Z85.048 Personal history of other malignant neoplasm of rectum, rectosigmoid junction, and anus; Z85.038 Personal history of other malignant neoplasm of large intestine; K63.5 Polyp of colon; Z98.0 Intestinal bypass and anastomosis status; Z79.82 Long term (current) use of aspirin; Z79.899 Other long term (current) drug therapy; Z87.891 Personal history of nicotine dependence; Z85.05 Personal history of malignant neoplasm of liver; Z80.41 Family history of malignant neoplasm of ovary; Z80.42 Family history of malignant neoplasm of prostate; Z92.21 Personal history of antineoplastic chemotherapy

== ENCOUNTER → 2021-04-29 | Outpatient (CLI) | payer MEDICARE, OTHER ==
[~2021-04-29] MED LIST changes: +ALBU8.5H INH; +GASTROGRAFIN SOLUTION 30ML (Q9963) As Ordered ONE; +ISOVUE-370 76% 100ML VIAL As Ordered ONE; -NS 1,000 ML IV ONE; +ONDA-84 PO; -ONDA8TAB10 PO; -PROC10TA4 PO; +PROC10TA5 PO
== END ==
LOC: M RAD 14:20
PROVIDERS: ATTEND Internal Medicine Medical Oncology
DX: C18.9 Malignant neoplasm of colon, unspecified (principal)
CPT/HCPCS: 71260; 74177; Q9963; Q9967

== ENCOUNTER → 2021-05-25 | Outpatient (CLI) | payer MEDICARE, OTHER ==
[~2021-05-25] MED LIST changes: -GASTROGRAFIN SOLUTION 30ML (Q9963) As Ordered ONE; -ISOVUE-370 76% 100ML VIAL As Ordered ONE
== END ==
LOC: M PLARAD 12:42
PROVIDERS: ATTEND Internal Medicine Medical Oncology
DX: C18.8 Malignant neoplasm of overlapping sites of colon (principal)
CPT/HCPCS: 78815; A9552

== ENCOUNTER → 2021-08-05 | Outpatient (CLI) | payer MEDICARE, OTHER ==
[~2021-08-05] MED LIST changes: +ISOVUE-370 76% 100ML VIAL As Ordered ONE
== END ==
LOC: M RAD 08:46
PROVIDERS: ATTEND Internal Medicine Medical Oncology
DX: R91.8 Other nonspecific abnormal finding of lung field (principal)
CPT/HCPCS: 71260; Q9967

== ENCOUNTER → 2021-11-11 | Outpatient (CLI) | payer MEDICARE, OTHER ==
[~2021-11-11] MED LIST changes: +GASTROGRAFIN SOLUTION 30ML (Q9963) ONE; -ISOVUE-370 76% 100ML VIAL As Ordered ONE; +ISOVUE-370 76% 100ML VIAL ONE
== END ==
LOC: M PLAIMG 09:30
PROVIDERS: ATTEND Internal Medicine Medical Oncology
DX: C18.9 Malignant neoplasm of colon, unspecified (principal)
CPT/HCPCS: 71260; 74177; Q9963; Q9967

== ENCOUNTER → 2022-05-05 | Outpatient (CLI) | payer MEDICARE, OTHER ==
[~2022-05-05] MED LIST changes: -GASTROGRAFIN SOLUTION 30ML (Q9963) ONE; +GASTROGRAFIN SOLUTION 30ML As Ordered ONE; +ISOVUE-370 76% 100ML VIAL As Ordered ONE; -ISOVUE-370 76% 100ML VIAL ONE
== END ==
LOC: M RAD 11:26
PROVIDERS: ATTEND Internal Medicine Medical Oncology
DX: C18.9 Malignant neoplasm of colon, unspecified (principal)
CPT/HCPCS: 71260; 74177; Q9963; Q9967

== ENCOUNTER → 2022-05-07 | Outpatient (CLI) | payer MEDICARE ==
[~2022-05-07] MED LIST changes: -GASTROGRAFIN SOLUTION 30ML As Ordered ONE; -ISOVUE-370 76% 100ML VIAL As Ordered ONE
== END ==
LOC: M RAD 06:41
PROVIDERS: ATTEND Internal Medicine Medical Oncology
DX: R09.89 Other specified symptoms and signs involving the circulatory and respiratory systems (principal); N28.1 Cyst of kidney, acquired

== ENCOUNTER → 2022-08-09 | Outpatient (CLI) | payer MEDICARE, OTHER | LOC: M PLAIMG 10:31 | PROVIDERS: ATTEND Internal Medicine Pulmonary Disease | DX: R91.8 Other nonspecific abnormal finding of lung field (principal); I25.10 Atherosclerotic heart disease of native coronary artery without angina pectoris ==

== ENCOUNTER → 2022-10-18 | Outpatient (CLI) | payer MEDICARE, OTHER | LOC: M PLARAD 08:46 | PROVIDERS: ATTEND Internal Medicine Medical Oncology | DX: C18.7 Malignant neoplasm of sigmoid colon (principal) | CPT/HCPCS: 78815; A9552 ==

== ENCOUNTER 2022-12-01 07:43 | Day surgery (SDC) | payer MEDICARE, OTHER ==
[~2022-12-01] VITALS: Ht 177.8 cm; Wt 105.1 kg
[~2022-12-01 07:43] MED LIST changes: +ALBUTEROL SULFATE 2.5MG/0.5ML INH NEB SOLN INH ONE; +CETACAINE SPRAY 5GM As Ordered ONE; +EPINEPHrine 1MG/10ML SYRINGE 1.5IN As Ordered ONE; +LIDOCAINE PRES-FREE 2% 10ML AMP INH ONE
[2022-12-01] MEDS ORDERED: LR 1,000 ML IV SCH ×2 (08:40→10:45)
[2022-12-01] MEDS ORDERED: EPINEPHrine 1MG/10ML SYRINGE 1.5IN As Ordered ONE (09:30)
[2022-12-01] MEDS ORDERED: propofoL 200 MG/20 ML VIAL As Ordered ONE (09:34)
[2022-12-01] MEDS ORDERED: MIDAZOLAM INJ 2MG/2ML VIAL As Ordered ONE (09:34)
[2022-12-01] MEDS ORDERED: ONDANSETRON 4MG 2ML VIAL As Ordered ONE (09:34)
[2022-12-01] MEDS ORDERED: fentaNYL 100 MCG/2 ML INJECTION As Ordered ONE (09:34)
[2022-12-01] MEDS ORDERED: LIDOCAINE 2% 100MG/5ML SDV (FOR ANES.) As Ordered ONE (09:34)
[2022-12-01] MEDS ORDERED: ROCURONIUM BROMIDE 50MG/5ML VIAL As Ordered ONE ×2 (09:34→10:03)
[2022-12-01] MEDS ORDERED: ePHEDrine SULFATE 25 MG/5 ML(5MG/ML) SYRINGE As Ordered ONE (09:35)
[2022-12-01] MEDS ORDERED: SUGAMMADEX SODIUM 500 MG/5 ML VIAL (BRIDION) As Ordered ONE (09:50)
[2022-12-01] MEDS ORDERED: HYDROMORPHONE HCL 0.5 MG/ 0.5 ML SYRINGE IV PRN (10:45)
[2022-12-01] MEDS ORDERED: ONDANSETRON 4MG 2ML VIAL IV PRN (10:45)
[2022-12-01] MEDS ORDERED: fentaNYL 100 MCG/2 ML INJECTION IV PRN (10:45)
[2022-12-01] MEDS ORDERED: oxyCODONE 5MG TAB PO PRN (10:45)
[2022-12-01 11:45] VITALS: BP 113/59; TEMP 97.1; O2SAT 95
== END 2022-12-01 11:56 | disposition home or self-care (01) ==
LOC: M SDC 07:43
PROVIDERS: ATTEND Internal Medicine Pulmonary Disease
DX: J84.112 Idiopathic pulmonary fibrosis (principal); J84.115 Respiratory bronchiolitis interstitial lung disease; F12.10 Cannabis abuse, uncomplicated; I10 Essential (primary) hypertension; G47.33 Obstructive sleep apnea (adult) (pediatric); Z92.21 Personal history of antineoplastic chemotherapy; Z85.09 Personal history of malignant neoplasm of other digestive organs; Z79.82 Long term (current) use of aspirin; Z79.51 Long term (current) use of inhaled steroids; Z79.899 Other long term (current) drug therapy
CPT/HCPCS: 31623; 31624; 31628; 31654; 71045; 76000; 87070; 87071; 87077; 87102; 87116; 87186; 87205; 87206; 88104; 88305; J0171; J1100; J2250; J2405; J3010; S2900

== ENCOUNTER → 2023-05-10 | Outpatient (REF) | payer MEDICARE, OTHER ==
[~2023-05-10] MED LIST changes: -ALBUTEROL SULFATE 2.5MG/0.5ML INH NEB SOLN INH ONE; -CETACAINE SPRAY 5GM As Ordered ONE; -EPINEPHrine 1MG/10ML SYRINGE 1.5IN As Ordered ONE; -LIDOCAINE PRES-FREE 2% 10ML AMP INH ONE; -REST0.05 OP; +REST0.05 OU
[2023-05-10 15:05] LABS: CHOLESTEROL RISK RATIO 4.43 (<5); HDL CHOLESTEROL 40.6 MG/DL (>40); NON-HDL-C 139.4 MG/DL; PROSTATIC SPECIFIC AG MONITOR 1.05 NG/ML (< 4.00)
== END ==
LOC: M LAB REF 13:38
PROVIDERS: ATTEND Internal Medicine
DX: Z12.5 Encounter for screening for malignant neoplasm of prostate (principal); I10 Essential (primary) hypertension

== ENCOUNTER 2023-08-03 09:45 | Day surgery (SDC) | payer MEDICARE, OTHER ==
[~2023-08-03] VITALS: Ht 177.8 cm; Wt 105.1 kg
[~2023-08-03 09:45] MED LIST changes: +CETACAINE SPRAY 5GM As Ordered ONE; +EPINEPHrine 1MG/10ML SYRINGE 1.5IN As Ordered ONE; +TERB250T91 PO
[2023-08-03] MEDS ORDERED: fentaNYL 100 MCG/2 ML INJECTION As Ordered ONE (09:53)
[2023-08-03] MEDS ORDERED: propofoL 200 MG/20 ML VIAL As Ordered ONE (09:53)
[2023-08-03] MEDS ORDERED: ONDANSETRON 4MG 2ML VIAL As Ordered ONE (09:53)
[2023-08-03] MEDS ORDERED: ROCURONIUM BROMIDE 50MG/5ML VIAL As Ordered ONE (09:53)
[2023-08-03] MEDS ORDERED: MIDAZOLAM INJ 2MG/2ML VIAL As Ordered ONE (09:53)
[2023-08-03] MEDS ORDERED: LIDOCAINE 2% 100MG/5ML SDV (FOR ANES.) As Ordered ONE (09:53)
[2023-08-03] MEDS ORDERED: dexmedeTOMIDine (4MCG/ML)200MCG/50ML BTL (PRECEDEX) As Ordered ONE (09:57)
[2023-08-03] MEDS: ALBUTEROL SULFATE 2.5MG/0.5ML INH NEB SOLN INH ONE (10:25)
[2023-08-03] MEDS: LIDOCAINE PRES-FREE 2% 10ML AMP INH ONE (10:25)
[2023-08-03] MEDS ORDERED: LR 1,000 ML IV SCH ×2 (10:35→12:45)
[2023-08-03] MEDS ORDERED: SUGAMMADEX SODIUM 500 MG/5 ML VIAL (BRIDION) As Ordered ONE (11:17)
[2023-08-03] MEDS ORDERED: ePHEDrine SULFATE 25 MG/5 ML(5MG/ML) SYRINGE As Ordered ONE (12:02)
[2023-08-03] MEDS ORDERED: PHENYLephrine 500MCG 5ML (100MCG/ML) SYRINGE As Ordered ONE (12:02)
[2023-08-03] MEDS ORDERED: fentaNYL 100 MCG/2 ML INJECTION IV PRN (12:45)
[2023-08-03] MEDS ORDERED: ONDANSETRON 4MG 2ML VIAL IV PRN (12:45)
[2023-08-03] MEDS ORDERED: HYDROMORPHONE HCL 0.5 MG/ 0.5 ML SYRINGE IV PRN (12:45)
[2023-08-03] MEDS ORDERED: oxyCODONE 5MG TAB PO PRN (12:45)
[2023-08-03 13:46] VITALS: BP 113/65; TEMP 97.9; O2SAT 94
== END 2023-08-03 14:07 | disposition home or self-care (01) ==
LOC: M SDC 09:45
PROVIDERS: ATTEND Internal Medicine Pulmonary Disease
DX: C78.01 Secondary malignant neoplasm of right lung (principal); Z85.09 Personal history of malignant neoplasm of other digestive organs; I10 Essential (primary) hypertension; Z92.21 Personal history of antineoplastic chemotherapy; Z79.51 Long term (current) use of inhaled steroids; Z79.82 Long term (current) use of aspirin; Z79.899 Other long term (current) drug therapy; F17.200 Nicotine dependence, unspecified, uncomplicated; F12.10 Cannabis abuse, uncomplicated; G47.33 Obstructive sleep apnea (adult) (pediatric); N40.0 Benign prostatic hyperplasia without lower urinary tract symptoms
CPT/HCPCS: 31623; 31625; 31628; 31652; 71045; 76000; 87071; 87102; 88173; 88305; 93005; J0171; J1100; J2250; J2371; J2405; J3010; S2900

== ENCOUNTER → 2023-08-29 | Outpatient (CLI) | payer MEDICARE, OTHER ==
[~2023-08-29] MED LIST changes: -CETACAINE SPRAY 5GM As Ordered ONE; -EPINEPHrine 1MG/10ML SYRINGE 1.5IN As Ordered ONE
== END ==
LOC: M PLARAD 12:37
PROVIDERS: ATTEND Internal Medicine Medical Oncology
DX: C18.7 Malignant neoplasm of sigmoid colon (principal)
CPT/HCPCS: 78815; A9552

== ENCOUNTER → 2024-02-22 | Outpatient (CLI) | payer MEDICARE, OTHER ==
[~2024-02-22] MED LIST changes: +AMLO1TAB25; +AMOX500T2 PO; +AZIT500T5 PO; +BACTDSTA; +BUME2TAB3; +CAPE1TAB2 PO; +DEXA5TA PO; +HYDR50TA46; +LIDOCAINE 1% MDV 20ML VIAL As Ordered ONE; +ONDA-284 PO; +PANT40TA29; +POTA-151 PO; +PRED20TA; +SENN-187
[2024-02-22 10:20] VITALS: TEMP 97.8
[2024-02-22 11:40] VITALS: BP 141/67; O2SAT 99
== END ==
LOC: M IRPRO 09:52
PROVIDERS: ATTEND Internal Medicine Nephrology
DX: N17.9 Acute kidney failure, unspecified (principal)

== ENCOUNTER → 2024-03-29 | Outpatient (CLI) | payer MEDICARE, OTHER ==
[~2024-03-29] MED LIST changes: -LIDOCAINE 1% MDV 20ML VIAL As Ordered ONE; +PROHANCE 279.3MG/ML 15ML VIAL ONE; +PROHANCE 279.3MG/ML 5ML VIAL ONE
== END ==
LOC: M PLAIMG 07:48
PROVIDERS: ATTEND Dietitian, Registered
DX: C18.9 Malignant neoplasm of colon, unspecified (principal); K76.0 Fatty (change of) liver, not elsewhere classified
CPT/HCPCS: 74183; A9576

== ENCOUNTER → 2024-04-03 | Outpatient (CLI) | payer MEDICARE, OTHER ==
[~2024-04-03] MED LIST changes: +GASTROGRAFIN SOLUTION 30ML As Ordered ONE; -PROHANCE 279.3MG/ML 15ML VIAL ONE; -PROHANCE 279.3MG/ML 5ML VIAL ONE
== END ==
LOC: M RAD 09:04
PROVIDERS: ATTEND Dietitian, Registered
DX: C18.9 Malignant neoplasm of colon, unspecified (principal)
CPT/HCPCS: 71250; 74176; Q9963

== ENCOUNTER → 2024-06-18 | Outpatient (CLI) | payer MEDICARE, OTHER ==
[~2024-06-18] MED LIST changes: -GASTROGRAFIN SOLUTION 30ML As Ordered ONE
== END ==
LOC: M PLARAD 09:41
PROVIDERS: ATTEND Internal Medicine Medical Oncology
DX: C18.7 Malignant neoplasm of sigmoid colon (principal)
CPT/HCPCS: 78815; A9552

== ENCOUNTER → 2024-08-21 | Outpatient (CLI) | payer MEDICARE, OTHER | LOC: M PLARAD 12:51 | PROVIDERS: ATTEND Internal Medicine Medical Oncology | DX: C18.7 Malignant neoplasm of sigmoid colon (principal) | CPT/HCPCS: 78815; A9552 ==

== ENCOUNTER → 2024-12-05 | Outpatient (CLI) | payer MEDICARE, OTHER ==
[~2024-12-05] MED LIST changes: -AMLO1TAB25; +AMLO1TAB25 PO; -BUME2TAB3; +BUME2TAB3 PO; +GARL650C PO; -HYDR50TA46; +HYDR50TA46 PO; +OMEGCAP9 PO; +PANT40TA29 PO; -SENN-187; +SENN-187 PO; +TRAM50TA2 PO; +[UNRECOGNIZED DRUG - CODE] IV
== END ==
LOC: M ONCR 14:46
PROVIDERS: ATTEND General Practice
DX: C79.51 Secondary malignant neoplasm of bone (principal); C18.9 Malignant neoplasm of colon, unspecified; C78.7 Secondary malignant neoplasm of liver and intrahepatic bile duct; M79.602 Pain in left arm; M54.50 Low back pain, unspecified; F17.210 Nicotine dependence, cigarettes, uncomplicated; Z79.899 Other long term (current) drug therapy; Z80.42 Family history of malignant neoplasm of prostate; Z80.49 Family history of malignant neoplasm of other genital organs; Z92.21 Personal history of antineoplastic chemotherapy

== ENCOUNTER 2024-12-14 11:30 | Outpatient (RCR) | payer MEDICARE, OTHER ==
[2024-12-25] MEDS ORDERED: PROC10TA5 PO (16:59)
[2024-12-25] MEDS ORDERED: ONDA-284 PO (16:59)
== END 2024-12-27 ==
LOC: M ONCR 11:30
PROVIDERS: ATTEND General Practice
DX: Z51.0 Encounter for antineoplastic radiation therapy (principal); C79.51 Secondary malignant neoplasm of bone

== ENCOUNTER → 2025-03-19 | Outpatient (CLI) | payer MEDICARE, OTHER ==
[~2025-03-19] MED LIST changes: +GABA-1171
== END ==
LOC: M ONCR 10:39
PROVIDERS: ATTEND General Practice
DX: C79.51 Secondary malignant neoplasm of bone (principal); C18.9 Malignant neoplasm of colon, unspecified; F17.210 Nicotine dependence, cigarettes, uncomplicated; Z79.899 Other long term (current) drug therapy; Z92.3 Personal history of irradiation

== ENCOUNTER → 2025-04-29 | Outpatient (CLI) | payer MEDICARE, OTHER ==
[~2025-04-29] MED LIST changes: -BACTDSTA; +SULF-8
== END ==
LOC: M ONCR 08:58
PROVIDERS: ATTEND General Practice
DX: C79.51 Secondary malignant neoplasm of bone (principal); Z92.3 Personal history of irradiation; Z92.21 Personal history of antineoplastic chemotherapy; F17.210 Nicotine dependence, cigarettes, uncomplicated; Z79.899 Other long term (current) drug therapy; Z85.038 Personal history of other malignant neoplasm of large intestine

== ENCOUNTER 2025-05-17 10:44 | Outpatient (RCR) | payer MEDICARE, OTHER ==
[~2025-05-17 10:44] MED LIST changes: +GABA-1172
[2025-05-29] MEDS ORDERED: NYST-38 PO (09:14)
== END 2025-05-29 ==
LOC: M ONCR 10:44
PROVIDERS: ATTEND General Practice
DX: Z51.0 Encounter for antineoplastic radiation therapy (principal); C79.51 Secondary malignant neoplasm of bone